=== PATIENT | female | born 1965 | race Caucasian/White ===

== ENCOUNTER 2017-08-23 11:52 | Observation (INO) | payer BC ==
[2017-08-23] MEDS ORDERED: Aspirin 81 MG Tab.Chew PO ONE (12:03)
[2017-08-23] MEDS ORDERED: Sodium Chloride 0.9% 2.5 ML Syringe FLUSH PRN (12:03)
[2017-08-23] MEDS ORDERED: Sodium Chloride 0.9% 10 ML Syringe FLUSH PRN (12:03)
--- NOTE | 2017-08-23 12:06 | EDM.PDOC ---
ED HPI GENERAL MEDICAL PROBLEM - General Chief Complaint: Chest Pain Stated Complaint: CHEST PAIN Time Seen by Provider: 08/23/17 11:58 - History of Present Illness INITIAL COMMENTS - FREE TEXT/NARRATIVE: HISTORY AND PHYSICAL: History of present illness: Patient 52-year-old female presents concern of left-sided chest pain started this a.m. vaguely described without associated palpitations or diaphoresis patient equivocates regarding shortness of breath she denies prior history of VA or CVA she does have history of hypertension. Review of systems: As per history of present illness and below otherwise all systems reviewed and negative. Past medical history: As per history of present illness and as reviewed below otherwise noncontributory. Surgical history: As per history of present illness and as reviewed below otherwise noncontributory. Social history: No reported history of drug or alcohol abuse. Family history: As per history of present illness and as reviewed below otherwise noncontributory. Physical exam: HEENT: Atraumatic, normocephalic, pupils reactive, negative for conjunctival pallor or scleral icterus, mucous membranes moist, throat clear, neck supple, nontender, trachea midline. Lungs: Clear to auscultation, breath sounds equal bilaterally, chest nontender. Heart: S1S2, regular, negative for clicks, rubs, or JVD. Abdomen: Soft, nondistended, nontender. Negative for masses or hepatosplenomegaly. Negative for costovertebral tenderness. Pelvis: Stable nontender. Genitourinary: Deferred. Rectal: Deferred. Extremities: Atraumatic, negative for cords or calf pain. Neurovascular unremarkable. Neuro: Awake, alert, oriented. Cranial nerves II through XII unremarkable. Cerebellum unremarkable. Motor and sensory unremarkable throughout. Exam nonfocal. Diagnostics: CBC CMP PT/INR troponin chest x-ray EKG Therapeutics: IV O2 monitor aspirin 324 mg Impression: #1 chest pain # 2 history of hypertension Definitive disposition and diagnosis as appropriate pending reevaluation and review of above. - Related Data Allergies Allergy/AdvReac Type Severity Reaction Status Date / Time No Known Allergies Allergy Verified 08/23/17 12:08 Home Meds: Home Meds Hydrochlorothiazide [Microzide] 25 mg PO DAILY 12/14/13 [History] Losartan [Cozaar] 100 tab PO DAILY 12/18/13 [History] Pravastatin [Pravachol] 80 mg PO DAILY 12/18/13 [History] Omeprazole [priLOSEC OTC] 20 mg PO DAILY 05/30/14 [History] Carvedilol 25 mg PO BID 06/01/14 [History] traZODone HCl [Trazodone HCl] 50 mg PO 08/23/17 [History] Past Medical History Other Musculoskeletal History: Patient reports that collar bone and knees and bottom of feet hurt more often recently. Social & Family History - Tobacco Use Smoking Status *Q: Unknown Ever Smoked Second Hand Smoke Exposure: Yes - Alcohol Use Days Per Week of Alcohol Use: 8 Number of Drinks Per Day: 5 Total Drinks Per Week: 40 - Recreational Drug Use Recreational Drug Use: No Drug Use in Last 12 Months: No ED ROS GENERAL - Review of Systems Review Of Systems: ROS reveals no pertinent complaints other than HPI. ED EXAM, GENERAL - Physical Exam Exam: See Below (dictation) Course - Vital Signs Last Recorded V/S: Last Vital Signs Temp 36.6 C 08/23/17 12:04 Pulse 74 08/23/17 12:04 Resp 18 08/23/17 12:04 BP 161/90 H 08/23/17 12:04 Pulse Ox 98 08/23/17 12:04 - Orders/Labs/Meds Orders: Active Orders 24 hr Category Date Time Status Cardiac Monitoring [RC] . DIRECTED Care 08/23/17 12:02 Active EKG Documentation Completion [RC] STAT Care 08/23/17 12:02 Active Oxygen Therapy, ED [RC] ASDIRECTED Care 08/23/17 12:02 Active Pulse Oximetry [RC] ASDIRECTED Care 08/23/17 12:02 Active Chest 1V Frontal [CR] Stat Exams 08/23/17 12:03 Taken Sodium Chloride 0.9% [Normal Saline] 1,000 ml Med 08/23/17 12:15 Active IV STAT Sodium Chloride 0.9% [Saline Flush] Med 08/23/17 12:03 Active 10 ml FLUSH ASDIRECTED PRN Sodium Chloride 0.9% [Saline Flush] Med 08/23/17 12:03 Active 2.5 ml FLUSH ASDIRECTED PRN Saline Lock Insert [OM.PC] Stat Oth 08/23/17 12:02 Ordered Medication Orders Sodium Chloride (Normal Saline) 1,000 mls @ 125 mls/hr IV STAT TAI Last Admin: 08/23/17 12:40 Dose: 125 mls/hr Sodium Chloride (Saline Flush) 10 ml FLUSH ASDIRECTED PRN PRN Reason: Keep Vein Open Sodium Chloride (Saline Flush) 2.5 ml FLUSH ASDIRECTED PRN PRN Reason: Keep Vein Open Labs: Laboratory Tests 08/23/17 08/23/17 08/23/17 Range/Units 12:29 12:29 12:29 WBC 4.60 (4.0-11.0) K/uL RBC 4.21 L (4.30-5.90) M/uL Hgb 13.1 (12.0-16.0) g/dL Hct 37.8 (36.0-46.0) % MCV 89.8 (80.0-98.0) fL MCH 31.1 (27.0-32.0) pg MCHC 34.7 (31.0-37.0) g/dL RDW Std Deviation 40.1 (28.0-62.0) fl RDW Coeff of [place] 12 (11.0-15.0) % Plt Count 273 (150-400) K/uL MPV 9.20 (7.40-12.00) fL Neut % (Auto) 48.0 (48.0-80.0) % Lymph % (Auto) 38.5 (16.0-40.0) % [place] % (Auto) 8.3 (0.0-15.0) % Eos % (Auto) 4.8 (0.0-7.0) % Baso % (Auto) 0.4 (0.0-1.5) % Neut # (Auto) 2.2 (1.4-5.7) K/uL Lymph # (Auto) 1.8 (0.6-2.4) K/uL [place] # (Auto) 0.4 (0.0-0.8) K/uL Eos # (Auto) 0.2 (0.0-0.7) K/uL Baso # (Auto) 0.0 (0.0-0.1) K/uL Nucleated RBC % 0.0 /100WBC Nucleated RBCs # 0 K/uL INR 0.97 Sodium 140 (136-146) mmol/L Potassium 4.5 (3.5-5.1) mmol/L Chloride 105 (98-110) mmol/L Carbon Dioxide 24 (21-31) mmol/L BUN 15 (6.0-23.0) mg/dL Creatinine 0.8 (0.6-1.5) mg/dL Est Cr Clr Drug Dosing 62.07 mL/min Estimated GFR (MDRD) > 60.0 ml/min Glucose 102 (60-110) mg/dL Calcium 9.6 (8.8-10.8) mg/dL Total Bilirubin 0.5 (0.1-1.5) mg/dL AST 22 (5-40) IU/L ALT 22 (8-54) IU/L Alkaline Phosphatase 66 (40-150) Troponin I < 0.10 (0.0-0.29) NG/ML Total Protein 7.7 (6.0-8.0) g/dL Albumin 4.7 (3.5-5.0) g/dL Globulin 3.0 (2.0-3.5) g/dL Albumin/Globulin Ratio 1.6 (1.3-2.8) Urine Color Urine Appearance Urine pH (5.0-8.0) Ur Specific [place] (1.001-1.035) Urine Protein (NEGATIVE) mg/dL Urine Glucose (UA) (NEGATIVE) mg/dL Urine Ketones (NEGATIVE) mg/dL Urine Occult Blood (NEGATIVE) Urine Nitrite (NEGATIVE) Urine Bilirubin (NEGATIVE) Urine Urobilinogen (<2.0) EU/dL Ur Leukocyte Esterase (NEGATIVE) Urine RBC (0-2/HPF) Urine WBC (0-5/HPF) Ur Epithelial Cells (NONE-FEW) Urine Bacteria (NEGATIVE) Urine Opiates Screen (NEGATIVE) Ur Oxycodone Screen (NEGATIVE) Urine Methadone Screen (NEGATIVE) Ur Barbiturates Screen (NEGATIVE) Ur Phencyclidine Scrn (NEGATIVE) Ur Amphetamine Screen (NEGATIVE) U Methamphetamines Scrn (NEGATIVE) U Benzodiazepines Scrn (NEGATIVE) U Cocaine Metab Screen (NEGATIVE) U Marijuana (THC) Screen (NEGATIVE) 08/23/17 08/23/17 Range/Units 12:34 12:34 WBC (4.0-11.0) K/uL RBC (4.30-5.90) M/uL Hgb (12.0-16.0) g/dL Hct (36.0-46.0) % MCV (80.0-98.0) fL MCH (27.0-32.0) pg MCHC (31.0-37.0) g/dL RDW Std Deviation (28.0-62.0) fl RDW Coeff of [place] (11.0-15.0) % Plt Count (150-400) K/uL MPV (7.40-12.00) fL Neut % (Auto) (48.0-80.0) % Lymph % (Auto) (16.0-40.0) % [place] % (Auto) (0.0-15.0) % Eos % (Auto) (0.0-7.0) % Baso % (Auto) (0.0-1.5) % Neut # (Auto) (1.4-5.7) K/uL Lymph # (Auto) (0.6-2.4) K/uL [place] # (Auto) (0.0-0.8) K/uL Eos # (Auto) (0.0-0.7) K/uL Baso # (Auto) (0.0-0.1) K/uL Nucleated RBC % /100WBC Nucleated RBCs # K/uL INR Sodium (136-146) mmol/L Potassium (3.5-5.1) mmol/L Chloride (98-110) mmol/L Carbon Dioxide (21-31) mmol/L BUN (6.0-23.0) mg/dL Creatinine (0.6-1.5) mg/dL Est Cr Clr Drug Dosing mL/min Estimated GFR (MDRD) ml/min Glucose (60-110) mg/dL Calcium (8.8-10.8) mg/dL Total Bilirubin (0.1-1.5) mg/dL AST (5-40) IU/L ALT (8-54) IU/L Alkaline Phosphatase (40-150) Troponin I (0.0-0.29) NG/ML Total Protein (6.0-8.0) g/dL Albumin (3.5-5.0) g/dL Globulin (2.0-3.5) g/dL Albumin/Globulin Ratio (1.3-2.8) Urine Color YELLOW Urine Appearance CLEAR Urine pH 5.5 (5.0-8.0) Ur Specific [place] 1.020 (1.001-1.035) Urine Protein NEGATIVE (NEGATIVE) mg/dL Urine Glucose (UA) NEGATIVE (NEGATIVE) mg/dL Urine Ketones NEGATIVE (NEGATIVE) mg/dL Urine Occult Blood NEGATIVE (NEGATIVE) Urine Nitrite NEGATIVE (NEGATIVE) Urine Bilirubin NEGATIVE (NEGATIVE) Urine Urobilinogen 0.2 (<2.0) EU/dL Ur Leukocyte Esterase NEGATIVE (NEGATIVE) Urine RBC 0-1 (0-2/HPF) Urine WBC 0-1 (0-5/HPF) Ur Epithelial Cells RARE (NONE-FEW) Urine Bacteria RARE (NEGATIVE) Urine Opiates Screen NEGATIVE (NEGATIVE) Ur Oxycodone Screen NEGATIVE (NEGATIVE) Urine Methadone Screen NEGATIVE (NEGATIVE) Ur Barbiturates Screen NEGATIVE (NEGATIVE) Ur Phencyclidine Scrn NEGATIVE (NEGATIVE) Ur Amphetamine Screen NEGATIVE (NEGATIVE) U Methamphetamines Scrn NEGATIVE (NEGATIVE) U Benzodiazepines Scrn NEGATIVE (NEGATIVE) U Cocaine Metab Screen NEGATIVE (NEGATIVE) U Marijuana (THC) Screen NEGATIVE (NEGATIVE) Meds: Medications Generic Name Dose Route Start Last Admin Trade Name Freq PRN Reason Stop Dose Admin Sodium Chloride 1,000 mls @ 125 mls/hr 08/23/17 12:15 08/23/17 12:40 Normal Saline IV 125 mls/hr STAT TAI Administration Sodium Chloride 10 ml 08/23/17 12:03 Saline Flush FLUSH ASDIRECTED PRN Keep Vein Open Sodium Chloride 2.5 ml 08/23/17 12:03 Saline Flush FLUSH ASDIRECTED PRN Keep Vein Open Discontinued Medications Generic Name Dose Route Start Last Admin Trade Name Freq PRN Reason Stop Dose Admin Aspirin 324 mg 08/23/17 12:03 08/23/17 12:40 Aspirin PO 08/23/17 12:04 324 mg ONETIME ONE Administration Departure - Departure Time of Disposition: 13:34 Disposition: Refer to Observation Clinical Impression: Chest pain - Discharge Information Forms: ED Department Discharge - My Orders Last 24 Hours: My Active Orders 08/23/17 12:02 Cardiac Monitoring [RC] . DIRECTED EKG Documentation Completion [RC] STAT Oxygen Therapy, ED [RC] ASDIRECTED Pulse Oximetry [RC] ASDIRECTED Saline Lock Insert [OM.PC] Stat 08/23/17 12:03 Chest 1V Frontal [CR] Stat Sodium Chloride 0.9% [Saline Flush] 10 ml FLUSH ASDIRECTED PRN Sodium Chloride 0.9% [Saline Flush] 2.5 ml FLUSH ASDIRECTED PRN 08/23/17 12:15 Sodium Chloride 0.9% [Normal Saline] 1,000 ml IV STAT - Assessment/Plan Last 24 Hours: My Active Orders 08/23/17 12:02 Cardiac Monitoring [RC] . DIRECTED EKG Documentation Completion [RC] STAT Oxygen Therapy, ED [RC] ASDIRECTED Pulse Oximetry [RC] ASDIRECTED Saline Lock Insert [OM.PC] Stat 08/23/17 12:03 Chest 1V Frontal [CR] Stat Sodium Chloride 0.9% [Saline Flush] 10 ml FLUSH ASDIRECTED PRN Sodium Chloride 0.9% [Saline Flush] 2.5 ml FLUSH ASDIRECTED PRN 08/23/17 12:15 Sodium Chloride 0.9% [Normal Saline] 1,000 ml IV STAT
[2017-08-23] MEDS ORDERED: Sodium Chloride 0.9% 1,000 ML IV SCH (12:15)
[2017-08-23 12:57] LABS: CHLORIDE,CL 105 mmol/L (98-110); SODIUM,NA 140 mmol/L (136-146)
--- NOTE | 2017-08-23 15:02 | PCM.HP ---
H&P History of Present Illness - General Date of Service: 08/23/17 Admit Problem/Dx: Admission Diagnosis/Problem Admission Diagnosis/Problem Chest pain - History of Present Illness Initial Comments - Free Text/Narative: 52-year-old female presenting to emergency department with chief complaint of left sided chest pain starting at 08 30 this a.m. with past medical history of hypertension. Patient states that she awoke this morning with left-sided chest pain that radiated into her left arm but not jaw. She describes pain as "achy" and continuous but not sharp or heavy. She did have some associated shortness of breath and diaphoresis. Patient continues to have pain and states that there is nothing that makes it better or worse. She does have a history of hypertension and GERD. She takes prilosec for her gerd and reports that his pain is much different. States that she does have a family history on her mother's side of SD and stroke. She denies any associated nausea or vomiting with the chest pain. She also denies any leg pain or swelling. States that she recently drove back from [place] 3 days ago. Denies history of any DVT or coagulopathies. She has never smoked and drinks alcohol socially but not every day. Emergency department CBC, CMP, UA, urine tox were all unremarkable. Chest x-ray revealed no acute cardiopulmonary process but extensive thoracolumbar fixation and fusion. Initial troponin was negative at 12:30. Amylase and lipase were within normal limits. D-dimer was negative. She was mildly hypertensive with a blood pressure 161/90. ECG said no acute signs of ischemia. Patient is admitted for chest pain/ACS rule out. Chest Pain Score (Numeric/FACES): 8 - Related Data Allergies/Adverse Reactions: Allergies Allergy/AdvReac Type Severity Reaction Status Date / Time No Known Allergies Allergy Verified 08/23/17 12:08 Home Medications: Home Meds Hydrochlorothiazide [Microzide] 25 mg PO DAILY 12/14/13 [History] Losartan [Cozaar] 100 tab PO DAILY 12/18/13 [History] Pravastatin [Pravachol] 80 mg PO DAILY 12/18/13 [History] Omeprazole [priLOSEC OTC] 20 mg PO DAILY 05/30/14 [History] Carvedilol 25 mg PO BID 06/01/14 [History] traZODone HCl [Trazodone HCl] 50 mg PO 08/23/17 [History] Past Medical History Cardiovascular History: Reports: High Cholesterol, Hypertension Gastrointestinal History: Reports: GERD [employer] History: Reports: Other Musculoskeletal History: Patient reports that collar bone and knees and bottom of feet hurt more often recently. - Past Surgical History HEENT Surgical History: Reports: Tonsillectomy Social & Family History - Family History Family Medical History: Noncontributory - Tobacco Use Smoking Status *Q: Never Smoker Second Hand Smoke Exposure: Yes - Caffeine Use Caffeine Use: Reports: Coffee, Soda - Alcohol Use Days Per Week of Alcohol Use: 3 Number of Drinks Per Day: 6 Total Drinks Per Week: 18 Date of Last Drink: 08/22/17 - Recreational Drug Use Recreational Drug Use: No Drug Use in Last 12 Months: No H&P Review of Systems - Review of Systems: Review Of Systems: See Below General: Denies: Fever, Chills, Malaise, Weakness, Fatigue HEENT: Denies: Headaches, Sore Throat Pulmonary: Reports: Shortness of Breath. Denies: Cough, Sputum Cardiovascular: Reports: Chest Pain. Denies: Palpitations, Lightheadedness, Syncope Gastrointestinal: Denies: Abdominal Pain, Black Stool, Bloody Stool, Diarrhea, Nausea, Vomiting Genitourinary: Denies: Dysuria, Hematuria Musculoskeletal: Denies: Neck Pain, Leg Pain Skin: Denies: Cyanosis Psychiatric: Denies: Confusion Neurological: Denies: Confusion, Dizziness, Headache Hematologic/Lymphatic: Denies: Anemia Exam - Exam Exam: See Below - Vital Signs Vital Signs: Last Vital Signs Temp 97.8 F 08/23/17 12:04 Pulse 74 08/23/17 12:04 Resp 18 08/23/17 12:04 BP 161/90 H 08/23/17 12:04 Pulse Ox 98 08/23/17 12:04 Weight: 68.175 kg - Exam Quality Assessment: DVT Prophylaxis General: Alert, Oriented, Cooperative HEENT: Conjunctiva Clear, EACs Clear, EOMI, Hearing Intact, Mucosa Moist & [place] , Nares Patent, Normal Nasal Septum, Posterior Pharynx Clear, PERRLA Neck: Supple, Trachea Midline, 2 Lungs: Clear to Auscultation, Normal Respiratory Effort Cardiovascular: Regular Rate, Regular Rhythm, Normal S1, Normal S2 GI/Abdominal Exam: Normal Bowel Sounds, Soft, Non-Tender, No Organomegaly, No Distention (Female) Exam: Deferred Rectal (Female) Exam: Deferred Back Exam: Normal Inspection Extremities: Normal Inspection, Non-Tender, No Pedal Edema, Normal Capillary Refill Peripheral Pulses: 2+: Radial (L), Radial (R), Posterior Tibial (L), Posterior Tibial (R), Dorsalis Pedis (L), Dorsalis Pedis (R) Skin: Warm, Dry, Intact Neurological: Cranial Nerves Intact Neuro Extensive - Mental Status: Alert, Oriented x3, Normal Mood/Affect, Normal Cognition Neuro Extensive - Motor, Sensory, Reflexes: CN II-XII Intact Psychiatric: Alert, Normal Affect, Normal Mood - Patient Data Result Diagrams: 08/23/17 12:29 08/23/17 12:29 *Q Meaningful Use (ADM) - VTE *Q VTE Criteria *Q: - Stroke *Q Stroke Criteria *Q: - AMI *Q AMI Criteria *Q: - Problem List (1) Hypertension SNOMED Code(s): 95326763 ICD Code: I10 - ESSENTIAL (PRIMARY) HYPERTENSION Status: Acute Current Visit: Yes Qualifiers: Hypertension type: unspecified Qualified Code(s): I10 - Essential (primary ) hypertension (2) Chest pain SNOMED Code(s): 40057414 ICD Code: R07.9 - CHEST PAIN, UNSPECIFIED Status: Acute Current Visit: Yes Qualifiers: Chest pain type: other chest pain Qualified Code(s): R07.89 - Other chest pain; R07.8 - Other chest pain Problem List Initiated/Reviewed/Updated: Yes Orders Last 24hrs: Active Orders 24 hr Category Date Time Status AMYLASE [CHEM] Routine Lab 08/23/17 15:02 Ordered LIPASE [CHEM] Routine Lab 08/23/17 15:02 Ordered Medication Orders Sodium Chloride (Normal Saline) 1,000 mls @ 125 mls/hr IV STAT TAI Last Admin: 08/23/17 12:40 Dose: 125 mls/hr Sodium Chloride (Saline Flush) 10 ml FLUSH ASDIRECTED PRN PRN Reason: Keep Vein Open Sodium Chloride (Saline Flush) 2.5 ml FLUSH ASDIRECTED PRN PRN Reason: Keep Vein Open Assessment/Plan Comment:: 52-year-old female admitted 08/23/17 for chest pain with past medical history of hypertension. Chest pain: Patient was diaphoretic with left-sided chest pain radiating into her left arm. It is not reproducible on exam. She did have recent travel but d- dimer was negative and reports no leg pain. Initial troponin was negative. ECG shows no signs of acute ischemia. Will trend troponins every [address] on telemetry. Fasting lipid panel in a.m. She does have a history of pancreatitis but amylase and lipase were within normal limits. Acetaminophen and morphine for pain. Hypertension: Hypertensive at 161/90 in the emergency department. This is improved with pain medication. Will restart home medications and monitor. As above we will get a lipid panel to assess her overall cardiac risk. VTE proph: SCD, Lovenox Dispo: 1-2 days pending.
[2017-08-23] MEDS ORDERED: Acetaminophen 325 MG Tab PO PRN (15:21)
[2017-08-23] MEDS ORDERED: Ondansetron 4 MG Tab.DIS PO PRN (15:21)
[2017-08-23] MEDS: Enoxaparin 40 MG/0.4 ML Syringe SUBCUT SCH (15:50)
[2017-08-23] MEDS: Morphine 2 MG/ML Syringe IVPUSH PRN ×2 (15:52→20:50)
[2017-08-23] MEDS: Ondansetron 4 MG/2 ML SDV IVPUSH PRN (18:13)
[2017-08-23] MEDS: Sodium Chloride 0.9% 1,000 ML IV SCH ×2 (18:16→20:51)
[2017-08-24] MEDS: Ondansetron 4 MG/2 ML SDV IVPUSH PRN (00:18)
[2017-08-24 06:38] LABS: CHLORIDE,CL 105 mmol/L (98-110); SODIUM,NA 139 mmol/L (136-146)
[2017-08-24 13:10] VITALS: BP 137/80
[2017-08-24] MEDS: Enoxaparin 40 MG/0.4 ML Syringe SUBCUT SCH (14:31)
--- NOTE | 2017-08-24 14:55 | PCM.DCSUM1 ---
Discharge Summary - Discharge Data Discharge Date: 08/24/17 Discharge Disposition: Home, Self-Care 01 Condition: Good - Patient Summary/Data Hospital Course: 52-year-old female presenting to emergency department with chief complaint of left sided chest pain starting at 08 30 this a.m. with past medical history of hypertension. She was admitted and ruled out overnight for acute coronary syndrome with serial negative cardiac enzymes. She had no more chest pain since admission. There were no signs of acute ischemia on EKG. Amylase and lipase were normal, CBC,CMP,UA CXR and urine tox were all unremarkable. Triglycerides were 602 so she was started on gemfibrozil. She was referred to outpatient stress testing and discharged home to have follow up at [facility]. - Discharge Plan Prescriptions/Med Rec: Gemfibrozil [Lopid] 600 mg PO BIDAC #30 tab Home Medications: Home Meds Hydrochlorothiazide [Microzide] 25 mg PO DAILY 12/14/13 [History] Losartan [Cozaar] 100 tab PO DAILY 12/18/13 [History] Pravastatin [Pravachol] 80 mg PO DAILY 12/18/13 [History] Omeprazole [priLOSEC OTC] 20 mg PO DAILY 05/30/14 [History] Carvedilol 25 mg PO BID 06/01/14 [History] traZODone HCl [Trazodone HCl] 50 mg PO 08/23/17 [History] Gemfibrozil [Lopid] 600 mg PO BIDAC #30 tab 08/24/17 [Rx] Patient Handouts: Nonspecific Chest Pain, [id number] Referrals: PCP,None [Primary Care Provider] - - Patient Data Vitals - Most Recent: Last Vital Signs Temp 36.3 C 08/24/17 13:14 Pulse 62 08/24/17 13:14 Resp 18 08/24/17 13:14 BP 137/80 08/24/17 13:14 Pulse Ox 97 08/24/17 13:14 Weight - Most Recent: 68.175 kg I&O - Last 24 hours: Intake & Output 08/23/17 08/24/17 08/24/17 22:59 06:59 14:59 Intake Total 1196 200 Output Total 0 1000 Balance 1196 -800 Lab Results - Last 24 hrs: Laboratory Results - last 24 hr 08/23/17 08/24/17 08/24/17 Range/Units 18:30 00:27 05:45 WBC 4.83 (4.0-11.0) K/uL RBC 3.71 L (4.30-5.90) M/uL Hgb 11.5 L (12.0-16.0) g/dL Hct 34.5 L (36.0-46.0) % MCV 93.0 (80.0-98.0) fL MCH 31.0 (27.0-32.0) pg MCHC 33.3 (31.0-37.0) g/dL RDW Std Deviation 43.2 (28.0-62.0) fl RDW Coeff of [place] 13 (11.0-15.0) % Plt Count 241 (150-400) K/uL MPV 9.10 (7.40-12.00) fL Neut % (Auto) 48.9 (48.0-80.0) % Lymph % (Auto) 38.5 (16.0-40.0) % [place] % (Auto) 8.9 (0.0-15.0) % Eos % (Auto) 3.3 (0.0-7.0) % Baso % (Auto) 0.4 (0.0-1.5) % Neut # (Auto) 2.4 (1.4-5.7) K/uL Lymph # (Auto) 1.9 (0.6-2.4) K/uL [place] # (Auto) 0.4 (0.0-0.8) K/uL Eos # (Auto) 0.2 (0.0-0.7) K/uL Baso # (Auto) 0.0 (0.0-0.1) K/uL Nucleated RBC % 0.0 /100WBC Nucleated RBCs # 0 K/uL Sodium (136-146) mmol/L Potassium (3.5-5.1) mmol/L Chloride (98-110) mmol/L Carbon Dioxide (21-31) mmol/L BUN (6.0-23.0) mg/dL Creatinine (0.6-1.5) mg/dL Est Cr Clr Drug Dosing mL/min Estimated GFR (MDRD) ml/min Glucose (60-110) mg/dL Calcium (8.8-10.8) mg/dL Magnesium (1.5-2.3) mEq/L Troponin I < 0.10 < 0.10 (0.0-0.29) NG/ML Triglycerides (10-190) mg/dL Cholesterol (131-240) mg/dL HDL Cholesterol (40-80) mg/dL Cholesterol/HDL Ratio (3.3-6.0) 08/24/17 Range/Units 05:45 WBC (4.0-11.0) K/uL RBC (4.30-5.90) M/uL Hgb (12.0-16.0) g/dL Hct (36.0-46.0) % MCV (80.0-98.0) fL MCH (27.0-32.0) pg MCHC (31.0-37.0) g/dL RDW Std Deviation (28.0-62.0) fl RDW Coeff of [place] (11.0-15.0) % Plt Count (150-400) K/uL MPV (7.40-12.00) fL Neut % (Auto) (48.0-80.0) % Lymph % (Auto) (16.0-40.0) % [place] % (Auto) (0.0-15.0) % Eos % (Auto) (0.0-7.0) % Baso % (Auto) (0.0-1.5) % Neut # (Auto) (1.4-5.7) K/uL Lymph # (Auto) (0.6-2.4) K/uL [place] # (Auto) (0.0-0.8) K/uL Eos # (Auto) (0.0-0.7) K/uL Baso # (Auto) (0.0-0.1) K/uL Nucleated RBC % /100WBC Nucleated RBCs # K/uL Sodium 139 (136-146) mmol/L Potassium 4.2 (3.5-5.1) mmol/L Chloride 105 (98-110) mmol/L Carbon Dioxide 26 (21-31) mmol/L BUN 12 (6.0-23.0) mg/dL Creatinine 0.8 (0.6-1.5) mg/dL Est Cr Clr Drug Dosing 62.07 mL/min Estimated GFR (MDRD) > 60.0 ml/min Glucose 104 (60-110) mg/dL Calcium 8.8 (8.8-10.8) mg/dL Magnesium 1.6 (1.5-2.3) mEq/L Troponin I (0.0-0.29) NG/ML Triglycerides 602 H (10-190) mg/dL Cholesterol 241 H (131-240) mg/dL HDL Cholesterol 42 (40-80) mg/dL Cholesterol/HDL Ratio 5.7 (3.3-6.0) Med Orders - Current: Current Medications Acetaminophen (Tylenol) 650 mg PO Q4H PRN PRN Reason: Pain (Mild 1-3)/fever Enoxaparin Sodium (Lovenox) 40 mg SUBCUT Q24H TAI Last Admin: 08/24/17 14:31 Dose: 40 mg Sodium Chloride (Normal Saline) 1,000 mls @ 100 mls/hr IV ASDIRECTED TAI Last Admin: 08/23/17 20:51 Dose: 100 mls/hr Morphine Sulfate (Morphine) 2 mg IVPUSH Q2H PRN PRN Reason: Pain (severe 7-10) Stop: 08/24/17 15:23 Last Admin: 08/23/17 20:50 Dose: 2 mg Ondansetron HCl (Zofran Odt) 4 mg PO Q4H PRN PRN Reason: nausea, able to take PO Ondansetron HCl (Zofran) 4 mg IVPUSH Q4H PRN PRN Reason: Nausea Last Admin: 08/24/17 00:18 Dose: 4 mg Sodium Chloride (Saline Flush) 10 ml FLUSH ASDIRECTED PRN PRN Reason: Keep Vein Open Sodium Chloride (Saline Flush) 2.5 ml FLUSH ASDIRECTED PRN PRN Reason: Keep Vein Open Discontinued Medications Aspirin (Aspirin) 324 mg PO ONETIME ONE Stop: 08/23/17 12:04 Last Admin: 08/23/17 12:40 Dose: 324 mg Sodium Chloride (Normal Saline) 1,000 mls @ 125 mls/hr IV STAT [facility] Last Admin: 08/23/17 12:40 Dose: 125 mls/hr *Q Meaningful Use (DIS) - VTE *Q VTE Criteria *Q: - Stroke *Q Stroke Criteria *Q: - AMI *Q AMI Criteria *Q:
--- NOTE | 2017-08-25 14:16 | CR ---
EXAM DATE: 08/23/17 PATIENT'S AGE: 52 Patient: ANDRES ROSSI Facility: [place] [place] Site . Site : [id number] Study: XRay Chest [id number]/27/[id number] 12:39:18 PM Ordering Physician: Joyce Raphael Final Report: INDICATION: Pain. Shortness of breath. TECHNIQUE: AP upright portable chest. COMPARISON: None. FINDINGS: Shallow inspiration. Extensive thoracolumbar yessy fixation/fusion posteriorly. Shallow inspiration. Clear lungs. Overall heart size is normal accounting for technique. Slight degenerative change of the left AC joint. Impression : 1. Extensive thoracolumbar yessy fixation/fusion. 2. No acute cardiopulmonary process identified. Dictated by Ananth Sams MD @ 08/23/2017 1:18:54 PM Dictated by: Ananth Sams MD @ 08/23/2017 13:19:00 (Electronic Signature) Report Signed by Proxy. [email or web address]
== END 2017-08-24 15:20 | disposition home or self-care (01) ==
LOC: MW.ED 11:52 → MW.MS 13:36
PROVIDERS: ADMIT Family Medicine; ATTEND Family Medicine
DX: R07.89 Other chest pain (principal); I10 Essential (primary) hypertension; K21.9 Gastro-esophageal reflux disease without esophagitis; E78.00 Pure hypercholesterolemia, unspecified; Z79.899 Other long term (current) drug therapy; Z82.49 Family history of ischemic heart disease and other diseases of the circulatory system; Z90.89 Acquired absence of other organs
CPT/HCPCS: 36415; 71045; 80048; 80053; 80061; 80305; 81001; 82150; 83690; 83735; 84484; 85025; 85379; 85610; 93005; 96360; 96361; 99285; A9270; J1650; J2270; J2405; J7040; 96372; 96374; 96375; 96376; 99283; G0378

== ENCOUNTER 2017-09-24 09:10 | Day surgery (SDC) | payer BC ==
[~2017-09-24 09:10] MED LIST: Lactated Ringers 1,000 ML IV SCH; Lidocaine 2% 5 ML SDV ONE; Propofol 200 MG/20 ML SDV ONE; Sodium Chloride 0.9% 10 ML Syringe FLUSH PRN; Sodium Chloride 0.9% 2.5 ML Syringe FLUSH PRN; fentaNYL 100 MCG/2 ML SDV ONE
--- NOTE | 2017-09-24 09:51 | PCM.PREANE ---
Preanesthetic Assessment - Anesthesia/Transfusion/Family Hx Anesthesia History: Prior Anesthesia Without Reaction Other Type of Anesthesia Reaction Comment: DENIES ANY PROBLEMS WITH ANESTHESIA Family History of Anesthesia Reaction: No Transfusion History: No Prior Transfusion(s) Intubation History: Unknown - Review of Systems General: No Symptoms Pulmonary: No Symptoms Cardiovascular: No Symptoms Gastrointestinal: Other (changes in bowel habits) Neurological: No Symptoms Other: Reports: None - Physical Assessment O2 Sat by Pulse Oximetry: 96 Respiratory Rate: 16 Vital Signs: Last Vital Signs Temp 36.9 C 09/24/17 09:29 Pulse 64 09/24/17 09:29 Resp 16 09/24/17 09:29 BP 127/89 09/24/17 09:29 Pulse Ox 96 09/24/17 09:29 Height: 1.55 m Weight: 68.492 kg ASA Class: 2 Mental Status: Alert & Oriented x3 Airway Class: Mallampati = 2 Dentition: Reports: Normal Dentition Thyro-Mental Finger Breadths: 3 Mouth Opening Finger Breadths: 2 ROM/Head Extension: Full Lungs: Clear to Auscultation, Normal Respiratory Effort Cardiovascular: Regular Rate, Regular Rhythm - Allergies Allergies/Adverse Reactions: Allergies Allergy/AdvReac Type Severity Reaction Status Date / Time No Known Allergies Allergy Verified 09/22/17 10:20 - Blood Blood Available: No - Anesthesia Plan Pre-Op Medication Ordered: None - Acknowledgements Anesthesia Type Planned: MAC Pt an Appropriate Candidate for the Planned Anesthesia: Yes Alternatives and Risks of Anesthesia Discussed w Pt/Guardian: Yes Pt/Guardian Understands and Agrees with Anesthesia Plan: Yes PreAnesthesia Questionnaire HEENT History: Reports: None Cardiovascular History: Reports: High Cholesterol, Hypertension Respiratory History: Reports: None Gastrointestinal History: Reports: GERD, Pancreatitis, Other (See Below) (h/o elevated LFT's during pancreatitis) Genitourinary History: Reports: None 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: Musculoskeletal History: Reports: Back Pain, Chronic, Fracture, Other (See Below ) (arttalgia, myalgia) Other Musculoskeletal History: hx ashia ankle fx's Psychiatric History: Reports: Anxiety Endocrine/Metabolic History: Reports: None Hematologic History: Reports: None Immunologic History: Reports: None Oncologic (Cancer) History: Reports: None Dermatologic History: Reports: None - Past Surgical History Head Surgeries/Procedures: Reports: None HEENT Surgical History: Reports: Tonsillectomy GI Surgical History: Reports: Colonoscopy (x2), EGD Female Surgical History: Reports: Hysterectomy, Other (See Below) Other Female Surgeries/Procedures: ashia breast reduction Neurological Surgical History: Reports: C-Spine, Lumbar Spine (rods placement and removal for treatment of scoliosis), Scoliosis Other Neurological Surgeries/Procedures: hx neck and back surgery Musculoskeletal Surgical History: Reports: Carpal Tunnel - SUBSTANCE USE Smoking Status *Q: Never Smoker Tobacco Use Within Last Twelve Months: No Second Hand Smoke Exposure: Yes Days Per Week of Alcohol Use: 3 Number of Drinks Per Day: 6 Total Drinks Per Week: 18 Recreational Drug Use History: No - HOME MEDS Home Medications: Home Meds Omeprazole [priLOSEC OTC] 20 mg PO DAILY 05/30/14 [History] Carvedilol 25 mg PO BID 06/01/14 [History] traZODone HCl [Trazodone HCl] 100 mg PO BEDTIME 08/23/17 [History] Gemfibrozil [Lopid] 600 mg PO BIDAC #30 tab 08/24/17 [Rx] Aspirin [[place] Aspirin] 81 mg PO BEDTIME 09/22/17 [History] Triamterene/Hydrochlorothiazid [Triamterene-HCTZ 37.5-25 MG] 1 tab PO DAILY [History] - CURRENT (IN HOUSE) MEDS Current Meds: Current Medications Lactated Ringer's (Ringers, Lactated) 1,000 mls @ 125 mls/hr IV ASDIRECTED TAI Last Admin: 09/24/17 09:30 Dose: 125 mls/hr Sodium Chloride (Saline Flush) 10 ml FLUSH ASDIRECTED PRN PRN Reason: Keep Vein Open Sodium Chloride (Saline Flush) 2.5 ml FLUSH ASDIRECTED PRN PRN Reason: Keep Vein Open Sodium Chloride (Saline Flush) 10 ml FLUSH ASDIRECTED PRN PRN Reason: Keep Vein Open Sodium Chloride (Saline Flush) 2.5 ml FLUSH ASDIRECTED PRN PRN Reason: Keep Vein Open Discontinued Medications Fentanyl (Sublimaze) Confirm Administered Dose 100 mcg .ROUTE .STK-MED ONE Stop: 09/24/17 08:18 Lidocaine (Xylocaine-Mpf 2%) Confirm Administered Dose 5 ml .ROUTE .STK-MED ONE Stop: 09/24/17 08:17 Propofol (Diprivan 20 Ml) Confirm Administered Dose 400 mg .ROUTE .STK-MED ONE Stop: 09/24/17 08:17
--- NOTE | 2017-09-24 10:33 | PCM.OPNOTE ---
- General Post-Op/Procedure Note Date of Surgery/Procedure: 09/24/17 Operative Procedure(s): EGD with antral biopsy. Colonoscopy Findings: Mild antral gastritis and duodenitis; otherwise normal EGD. Colonoscopy normal. Pre Op Diagnosis: GERD. Alternating diarrhea and constipation/change in bowel habits Post-Op Diagnosis: Mild antral gastritis and duodenitis. Normal colonoscopy Anesthesia Technique: [facility] [place] Primary Surgeon: Hina Sim Secondary Surgeon: Torres Mac Pathology: Antral biopsy Complications: none
[2017-09-24 10:55] VITALS: BP 93/62
--- NOTE | 2017-09-24 10:56 | PCM48HPAN ---
Post Anesthesia Note - EVALUATION WITHIN 48HRS OF ANESTHETIC Vital Signs in Normal Range: Yes Patient Participated in Evaluation: Yes Respiratory Function Stable: Yes Airway Patent: Yes Cardiovascular Function Stable: Yes Hydration Status Stable: Yes Pain Control Satisfactory: Yes Nausea and Vomiting Control Satisfactory: Yes Mental Status Recovered: Yes Resp Rate: 15 - COMMENTS/OBSERVATIONS Free Text/Narrative:: no anesthesia problems
--- NOTE | 2017-09-24 11:30 | OR ---
SURGEON: CAROLE BEDOYA MD DATE OF PROCEDURE: 09/24/2017 PREOPERATIVE DIAGNOSIS: Gastroesophageal reflux disease, chronic diarrhea. POSTOPERATIVE DIAGNOSES: Gastroesophageal reflux disease, gastritis, duodenitis. PROCEDURE PERFORMED: Diagnostic esophagogastroduodenoscopy and colonoscopy. VISCOSE CELLAR WORKER: Dr. Fortunato Mac. ANESTHESIA: MAC. INSTRUMENT USED: Olympus endoscope, colonoscope EXTENT OF EXAM: To the second portion of the duodenum, to the cecum. PREPARATION: Good. LIMITATIONS: None. INDICATIONS FOR EXAMINATION: The patient is a 52-year-old female who presents with severe GERD. This is well controlled currently on PPIs, but she has never had an EGD. The patient is also complaining of 2 to 3 loose bowel movements a day as well as anal pruritus. She has not noticed any blood in her stool. We discussed the need for a diagnostic EGD and colonoscopy. The patient and I discussed the procedure, expected perioperative course, and risks including bleeding, infection, or damage to surrounding structures including perforation. The patient verbalized understanding and wishes to proceed. PROCEDURE IN DETAIL: The patient was brought into the endoscopy suite and placed in the left lateral decubitus position. A time-out was completed verifying the patient's name, age, date of , allergies, and procedure to be performed. Monitored anesthesia care was induced and a bite block was placed in the patient's mouth. Continuous oxygen was provided via nasal cannula throughout the procedure. After adequate sedation was achieved, a well lubricated endoscope was placed in the patient's mouth and advanced under direct visualization to the second portion of the duodenum. This appeared normal and a photograph was taken. The scope was then fully withdrawn while examining the color, texture, anatomy, and integrity of the upper GI tract. The patient had some mild duodenitis in the duodenal bulb. The scope was then brought into the stomach and a photograph was taken of the pylorus as well as the GE junction. There was some evidence of mild inflammation along the antrum up to the pylorus. Biopsy was taken of this as well as biopsies taken of the body and fundus and sent for H. pylori testing and histologic review. The scope was then brought into the distal esophagus. This appeared normal and a photograph was taken of the GE junction. The distal esophagus appeared normal with no evidence of any esophagitis or dysplastic changes. The remainder of the esophageal mucosa was free of pathology. The scope was removed and this portion of the procedure was terminated. A digital rectal exam was performed. This exam was within normal limits. A well lubricated colonoscope was inserted into the rectum and advanced under direct visualization to the level of cecum. The cecum was identified by both visual and anatomic landmarks. A photograph was taken of the cecal cap. Due to looping of the scope more proximally, I was unable to retroflex the scope within the cecum. The scope was then fully withdrawn while examining the color, texture, anatomy, and integrity of the mucosa from the cecum to the anal canal. The findings were consistent with normal colonic mucosa. The scope was then brought into the rectum and retroflexed to allow visualization of the anal canal opening. This appeared normal and a photograph was taken. The scope was then straightened out and removed from the patient. The cecum to anus time was 6 minutes. The patient tolerated the procedure well and was taken to PACU in stable condition. ENDOSCOPIC DIAGNOSES: 1. Gastroesophageal reflux disease. 2. Gastritis, duodenitis. RECOMMENDATIONS: We will start the patient on fiber therapy for her diarrhea. She should continue her PPI therapy as she feels this is helping. We will follow up on the biopsies in 2 weeks with the patient in clinic. ELIZABETH SWEENEY /[id number]
== END 2017-09-24 11:00 | disposition home or self-care (01) ==
LOC: MW.SDS 09:10
PROVIDERS: ATTEND Surgery
DX: K29.50 Unspecified chronic gastritis without bleeding (principal); K29.80 Duodenitis without bleeding; L57.0 Actinic keratosis; I10 Essential (primary) hypertension; R22.31 Localized swelling, mass and lump, right upper limb; E78.5 Hyperlipidemia, unspecified; G47.00 Insomnia, unspecified; L98.9 Disorder of the skin and subcutaneous tissue, unspecified; F41.9 Anxiety disorder, unspecified; Z90.89 Acquired absence of other organs; Z79.82 Long term (current) use of aspirin; Z79.899 Other long term (current) drug therapy; Z98.890 Other specified postprocedural states
CPT/HCPCS: 43239; 45378; 88305; 88312; J3010; J7120; J2704

== ENCOUNTER 2017-11-11 14:49 | Emergency (ER) | payer BC ==
[2017-11-11] MEDS ORDERED: Ketorolac 30 MG/ML SDV IM ONE (14:52)
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
--- NOTE | 2017-11-11 16:28 | CR ---
EXAMINATION: Thoracic spine HISTORY: Pain COMPARISON: 06/02/2017 TECHNIQUE: AP and lateral views FINDINGS: Extensive bilateral fusion of the thoracic spine again noted. Osseous structures appear int act and notably osteopenic. Stable S-shaped scoliosis. Visualized lungs are clear. IMPRESSION: 1. Stable hardware fusion of the thoracic spine without an acute findings.
--- NOTE | 2017-11-11 16:35 | CR ---
EXAMINATION: Left shoulder HISTORY: Pain COMPARISON: Thoracic spine from the same day TECHNIQUE: 3 views FINDINGS/IMPRESSION: There is no acute osseous abnormality, dislocation, or fracture. Bone mineraliza tion and joint spaces are preserved. Mild acromioclavicular osteoarthritic changes noted. Humeral hea d is mildly high riding which could suggest underlying rotator cuff arthropathy.
[2017-11-11 17:22] VITALS: BP 127/87
== END 2017-11-11 16:54 | disposition home or self-care (01) ==
LOC: MW.ED 14:49
DX: M62.830 Muscle spasm of back (principal); I10 Essential (primary) hypertension; Z79.899 Other long term (current) drug therapy; Z77.22 Contact with and (suspected) exposure to environmental tobacco smoke (acute) (chronic)
CPT/HCPCS: 72070; 73030; 96372; 99283; J1885

== ENCOUNTER 2018-11-28 09:34 | Emergency (ER) | payer BC ==
[2018-11-28] MEDS ORDERED: Morphine 2 MG/ML Syringe IVPUSH ONE (09:55)
[2018-11-28] MEDS ORDERED: Ketorolac 30 MG/ML SDV IVPUSH ONE (09:55)
[2018-11-28] MEDS ORDERED: Sodium Chloride 0.9% 10 ML Syringe FLUSH PRN (09:55)
[2018-11-28] MEDS ORDERED: Sodium Chloride 0.9% 1,000 ML IV ONE (09:55)
[2018-11-28] MEDS ORDERED: Ondansetron 4 MG/2 ML SDV IVPUSH ONE (09:55)
[2018-11-28] MEDS ORDERED: Sodium Chloride 0.9% 2.5 ML Syringe FLUSH PRN (09:55)
--- NOTE | 2018-11-28 09:57 | EDM.PDOC ---
ED HPI GENERAL MEDICAL PROBLEM - General Chief Complaint: Abdominal Pain Stated Complaint: PAIN ON RT SIDE TO BACK Time Seen by Provider: 11/28/18 09:40 - History of Present Illness INITIAL COMMENTS - FREE TEXT/NARRATIVE: HISTORY AND PHYSICAL: History of present illness: The patient is a 54-year-old female with a history of pancreatitis diverticulitis and gastritis in the past but who has had no abdominal surgical history except a hysterectomy and presents with complaints of right-sided abdominal pain that started about 4 days ago. She said that initially said that the pain started after having an episode of watery diarrhea on Friday. She said she had about 3-4 episodes of the watery diarrhea which was not black or bloody and now it is just mushy but it is not completely back to normal. She says that the pain started after the diarrhea on the right side and she points to the right mid abdomen as the location of pain. It was not a sudden onset and is gradually gotten worse and it is a deep sharp pain is not burning. She does not feel bloated and she has not had a fever chills and no flank pain. She said she has had some dark urine but no frequency or hematuria and she's had nausea but no vomiting. She has no history of food intolerance and has not had any GI problems as described above in her history since the last couple years. Said she tried some [id number] aspirin product which did help and she also had some leftover hydrocodone from a neck surgery a few months ago which also helped with the pain keeps returning and she is concerned. She has no left- sided abdominal pain and she points to the left mid abdomen underneath the ribs as the site of the discomfort. Review of systems: As per history of present illness and below otherwise all systems reviewed and negative. Past medical history: As per history of present illness and as reviewed below otherwise noncontributory. Surgical history: As per history of present illness and as reviewed below otherwise noncontributory. Social history: No reported history of drug or alcohol abuse. Family history: As per history of present illness and as reviewed below otherwise noncontributory. Physical exam: General: Well-developed well-nourished mildly overweight female who is nontoxic and vital signs are noted by me HEENT: Atraumatic, normocephalic, pupils reactive, negative for conjunctival pallor or scleral icterus, mucous membranes moist, throat clear, neck supple, nontender, trachea midline. Lungs: Clear to auscultation, breath sounds equal bilaterally, chest nontender. Heart: S1S2, regular rhythm and slightly tachycardic rate on my evaluation but no overt murmurs Abdomen: Soft, nondistended, there is some tympany in the upper abdomen and bowel sounds are slightly hypoactive. There is tenderness with palpation in the right mid abdomen area which does not seem to be in the right upper quadrant or the right lower quadrant specifically and there is no rebound or guarding Negative for masses or hepatosplenomegaly. Negative for costovertebral tenderness. Pelvis: Stable nontender. Genitourinary: Deferred. Rectal: Deferred. Extremities: Atraumatic, negative for cords or calf pain. Neurovascular unremarkable. Neuro: Awake, alert, oriented. Cranial nerves II through XII unremarkable. Cerebellum unremarkable. Motor and sensory unremarkable throughout. Exam nonfocal. Diagnostics: CBC CMP amylase lipase H. pylori UA with reflex, stool for study if patient produces, CT scan of the abdomen and pelvis Therapeutics: IV fluids Toradol morphine Zofran Cipro and Flagyl Bentyl I discussed with the patient at length her completely normal lab values and the CAT scan results including the mild diverticulitis of the descending colon which we will treat and the abnormal finding near the head of the pancreas which CT is not completely delineating. I've advised her to follow up with her provider in the clinic, Dr. Tillman at [facility]. She will need more evaluation of this area as this may be a mass that needs testing and/or biopsy. She states understanding. Impression: Right abdominal pain etiology unclear, mild diverticulitis of the descending colon, nonspecific area/mass near the head of the pancreas etiology unclear Definitive disposition and diagnosis as appropriate pending reevaluation and review of above. Right Lower Abdominal Pain Score (Numeric/FACES): 6 - Related Data Allergies Allergy/AdvReac Type Severity Reaction Status Date / Time No Known Allergies Allergy Verified 11/28/18 09:42 Home Meds: Home Meds Omeprazole [priLOSEC OTC] 20 mg PO DAILY 05/30/14 [History] traZODone HCl [Trazodone HCl] 100 mg PO BEDTIME 08/23/17 [History] Triamterene/Hydrochlorothiazid [Triamterene-HCTZ 37.5-25 MG] 1 tab PO DAILY [History] Psyllium Husk [Fiber] 0.52 gm PO BID #60 capsule 09/24/17 [Rx] Past Medical History HEENT History: Reports: None Cardiovascular History: Reports: High Cholesterol, Hypertension Respiratory History: Reports: None Gastrointestinal History: Reports: GERD, Pancreatitis, Other (See Below) Genitourinary History: Reports: None [employer] History: Reports: Musculoskeletal History: Reports: Back Pain, Chronic, Fracture, Osteoarthritis, Osteoporosis, Other (See Below) Other Musculoskeletal History: hx ashia ankle fx's Psychiatric History: Reports: Anxiety Endocrine/Metabolic History: Reports: None Hematologic History: Reports: None Immunologic History: Reports: None Oncologic (Cancer) History: Reports: None Dermatologic History: Reports: None - Infectious Disease History Infectious Disease History: Reports: None - Past Surgical History Head Surgeries/Procedures: Reports: None HEENT Surgical History: Reports: Tonsillectomy GI Surgical History: Reports: Colonoscopy, EGD, Other (See Below) Other GI Surgeries/Procedures: tummy tuck Female Surgical History: Reports: Breast Reduction, Hysterectomy, Other (See Below) Other Female Surgeries/Procedures: ashia breast reduction Neurological Surgical History: Reports: C-Spine, Lumbar Spine, Scoliosis Other Neurological Surgeries/Procedures: hx neck and back surgery Musculoskeletal Surgical History: Reports: Carpal Tunnel Social & Family History - Family History Family Medical History: Noncontributory - Tobacco Use Smoking Status *Q: Never Smoker - Caffeine Use Caffeine Use: Reports: Coffee - Recreational Drug Use Recreational Drug Use: No ED ROS GENERAL - Review of Systems Review Of Systems: ROS reveals no pertinent complaints other than HPI. ED EXAM, GENERAL - Physical Exam Exam: See Below (See dictation) Course - Vital Signs Last Recorded V/S: Last Vital Signs Temp 35.7 C 11/28/18 09:43 Pulse 83 11/28/18 09:43 Resp 16 11/28/18 09:43 BP 154/80 H 11/28/18 09:43 Pulse Ox 98 11/28/18 09:43 - Orders/Labs/Meds Orders: Active Orders 24 hr Category Date Time Status CULTURE STOOL + CAMPY+SHIGATOX [RM] Stat Lab 11/28/18 09:58 Ordered Ciprofloxacin [Ciprofloxacin HCl] Med 11/28/18 13:18 Once 500 mg PO ONETIME ONE Dicyclomine [Bentyl] Med 11/28/18 13:18 Once 10 mg PO ONETIME ONE Sodium Chloride 0.9% [Saline Flush] Med 11/28/18 09:55 Active 10 ml FLUSH ASDIRECTED PRN Sodium Chloride 0.9% [Saline Flush] Med 11/28/18 09:55 Active 2.5 ml FLUSH ASDIRECTED PRN metroNIDAZOLE/Normal Saline [Flagyl 500 MG in NS 100 ML Med 11/28/18 13:17 Ordered ] 500 mg Premix Bag 1 bag IV ONETIME Saline Lock Insert [OM.PC] Stat Oth 11/28/18 09:55 Ordered Medication Orders Ciprofloxacin (Ciprofloxacin Hcl) 500 mg PO ONETIME ONE Stop: 11/28/18 13:19 Dicyclomine HCl (Bentyl) 10 mg PO ONETIME ONE Stop: 11/28/18 13:19 Metronidazole 500 mg/ Premix 100 mls @ 100 mls/hr IV ONETIME ONE Stop: 11/28/18 14:16 Sodium Chloride (Saline Flush) 10 ml FLUSH ASDIRECTED PRN PRN Reason: Keep Vein Open Sodium Chloride (Saline Flush) 2.5 ml FLUSH ASDIRECTED PRN PRN Reason: Keep Vein Open Labs: Laboratory Tests 11/28/18 11/28/18 11/28/18 Range/Units 10:10 10:10 10:10 WBC 7.09 (4.0-11.0) K/uL RBC 4.01 L (4.30-5.90) M/uL Hgb 12.1 (12.0-16.0) g/dL Hct 36.7 (36.0-46.0) % MCV 91.5 (80.0-98.0) fL MCH 30.2 (27.0-32.0) pg MCHC 33.0 (31.0-37.0) g/dL RDW Std Deviation 41.9 (28.0-62.0) fl RDW Coeff of Vian[place] 12 (11.0-15.0) % Plt Count 272 (150-400) K/uL MPV 9.40 (7.40-12.00) fL Neut % (Auto) 73.5 (48.0-80.0) % Lymph % (Auto) 15.1 L (16.0-40.0) % [place]yer % (Auto) 8.6 (0.0-15.0) % Eos % (Auto) 2.7 (0.0-7.0) % Baso % (Auto) 0.1 (0.0-1.5) % Neut # (Auto) 5.2 (1.4-5.7) K/uL Lymph # (Auto) 1.1 (0.6-2.4) K/uL Dyer # (Auto) 0.6 (0.0-0.8) K/uL Eos # (Auto) 0.2 (0.0-0.7) K/uL Baso # (Auto) 0.0 (0.0-0.1) K/uL Nucleated RBC % 0.0 /100WBC Nucleated RBCs # 0 K/uL Sodium 138 (136-145) mmol/L Potassium 3.5 (3.5-5.1) mmol/L Chloride 100 (98-107) mmol/L Carbon Dioxide 27.9 (21.0-32.0) mmol/L BUN 15 (7.0-18.0) mg/dL Creatinine 0.9 (0.6-1.0) mg/dL Est Cr Clr Drug Dosing 54.55 mL/min Estimated GFR (MDRD) > 60.0 ml/min Glucose 108 H (74-106) mg/dL Calcium 9.5 (8.5-10.1) mg/dL Total Bilirubin 0.6 (0.2-1.0) mg/dL AST 30 (15-37) IU/L ALT 76 H (14-63) IU/L Alkaline Phosphatase 45 L (46-116) U/L Total Protein 7.9 (6.4-8.2) g/dL Albumin 4.2 (3.4-5.0) g/dL Globulin 3.7 (2.6-4.0) g/dL Albumin/Globulin Ratio 1.1 (0.9-1.6) Amylase 33 (25-115) U/L Lipase 229 (73-393) U/L Urine Color Urine Appearance Urine pH (5.0-8.0) Ur Specific [place] (1.001-1.035) Urine Protein (NEGATIVE) mg/dL Urine Glucose (UA) (NEGATIVE) mg/dL Urine Ketones (NEGATIVE) mg/dL Urine Occult Blood (NEGATIVE) Urine Nitrite (NEGATIVE) Urine Bilirubin (NEGATIVE) Urine Urobilinogen (<2.0) EU/dL Ur Leukocyte Esterase (NEGATIVE) H. pylori IgG Antibody NEGATIVE (NEG) 11/28/18 Range/Units 10:15 WBC (4.0-11.0) K/uL RBC (4.30-5.90) M/uL Hgb (12.0-16.0) g/dL Hct (36.0-46.0) % MCV (80.0-98.0) fL MCH (27.0-32.0) pg MCHC (31.0-37.0) g/dL RDW Std Deviation (28.0-62.0) fl RDW Coeff of Vianey (11.0-15.0) % Plt Count (150-400) K/uL MPV (7.40-12.00) fL Neut % (Auto) (48.0-80.0) % Lymph % (Auto) (16.0-40.0) % Dyer % (Auto) (0.0-15.0) % Eos % (Auto) (0.0-7.0) % Baso % (Auto) (0.0-1.5) % Neut # (Auto) (1.4-5.7) K/uL Lymph # (Auto) (0.6-2.4) K/uL Dyer # (Auto) (0.0-0.8) K/uL Eos # (Auto) (0.0-0.7) K/uL Baso # (Auto) (0.0-0.1) K/uL Nucleated RBC % /100WBC Nucleated RBCs # K/uL Sodium (136-145) mmol/L Potassium (3.5-5.1) mmol/L Chloride (98-107) mmol/L Carbon Dioxide (21.0-32.0) mmol/L BUN (7.0-18.0) mg/dL Creatinine (0.6-1.0) mg/dL Est Cr Clr Drug Dosing mL/min Estimated GFR (MDRD) ml/min Glucose (74-106) mg/dL Calcium (8.5-10.1) mg/dL Total Bilirubin (0.2-1.0) mg/dL AST (15-37) IU/L ALT (14-63) IU/L Alkaline Phosphatase (46-116) U/L Total Protein (6.4-8.2) g/dL Albumin (3.4-5.0) g/dL Globulin (2.6-4.0) g/dL Albumin/Globulin Ratio (0.9-1.6) Amylase (25-115) U/L Lipase (73-393) U/L Urine Color YELLOW Urine Appearance CLEAR Urine pH 5.5 (5.0-8.0) Ur Specific [place] 1.025 (1.001-1.035) Urine Protein NEGATIVE (NEGATIVE) mg/dL Urine Glucose (UA) NEGATIVE (NEGATIVE) mg/dL Urine Ketones NEGATIVE (NEGATIVE) mg/dL Urine Occult Blood NEGATIVE (NEGATIVE) Urine Nitrite NEGATIVE (NEGATIVE) Urine Bilirubin NEGATIVE (NEGATIVE) Urine Urobilinogen 0.2 (<2.0) EU/dL Ur Leukocyte Esterase NEGATIVE (NEGATIVE) H. pylori IgG Antibody (NEG) Meds: Medications Generic Name Dose Route Start Last Admin Trade Name Freq PRN Reason Stop Dose Admin Ciprofloxacin 500 mg 11/28/18 13:18 Ciprofloxacin Hcl PO 11/28/18 13:19 ONETIME ONE Dicyclomine HCl 10 mg 11/28/18 13:18 Bentyl PO 11/28/18 13:19 ONETIME ONE Metronidazole 500 mg/ Premix 100 mls @ 100 mls/hr 11/28/18 13:17 IV 11/28/18 14:16 ONETIME ONE Sodium Chloride 10 ml 11/28/18 09:55 Saline Flush FLUSH ASDIRECTED PRN Keep Vein Open Sodium Chloride 2.5 ml 11/28/18 09:55 Saline Flush FLUSH ASDIRECTED PRN Keep Vein Open Discontinued Medications Generic Name Dose Route Start Last Admin Trade Name Freq PRN Reason Stop Dose Admin Sodium Chloride 1,000 mls @ 999 mls/hr 11/28/18 09:55 11/28/18 10:09 Normal Saline IV 11/28/18 10:55 999 mls/hr STAT ONE Administration Iopamidol 100 ml 11/28/18 11:36 11/28/18 11:36 Isovue Multipack-370 (76%) IVPUSH 11/28/18 11:37 100 ml ONETIME ONE Administration Ketorolac Tromethamine 30 mg 11/28/18 09:55 11/28/18 10:09 Toradol IVPUSH 11/28/18 09:56 30 mg ONETIME ONE Administration Morphine Sulfate 4 mg 11/28/18 09:55 11/28/18 10:09 Morphine IVPUSH 11/28/18 09:56 4 mg ONETIME ONE Administration Ondansetron HCl 4 mg 11/28/18 09:55 11/28/18 10:09 Zofran IVPUSH 11/28/18 09:56 4 mg ONETIME ONE Administration Departure - Departure Time of Disposition: 13:20 Disposition: Home, Self-Care 01 Condition: Good Clinical Impression: Diverticulitis, Abnormal finding on CT scan Abdominal pain Qualifiers: Abdominal location: unspecified location Qualified Code(s): R10.9 - Unspecified abdominal pain - Discharge Information Referrals: Von Tillman MD [Primary Care Provider] - Forms: ED Department Discharge Additional Instructions: The following information is given to patients seen in the emergency department who are being discharged to home. This information is to outline your options for follow-up care. We provide all patients seen in our emergency department with a follow-up referral. The need for follow-up, as well as the timing and circumstances, are variable depending upon the specifics of your emergency department visit. If you don't have a primary care physician on staff, we will provide you with a referral. We always advise you to contact your personal physician following an emergency department visit to inform them of the circumstance of the visit and for follow-up with them and/or the need for any referrals to a consulting specialist. The emergency department will also refer you to a specialist when appropriate. This referral assures that you have the opportunity for followup care with a specialist. All of these measure are taken in an effort to provide you with optimal care, which includes your followup. Under all circumstances we always encourage you to contact your private physician who remains a resource for coordinating your care. When calling for followup care, please make the office aware that this follow-up is from your recent emergency room visit. If for any reason you are refused follow-up, please contact the [facility] emergency department at and ask to speak to the emergency department charge nurse. [address] [place] [address] Please take medications as prescribed for the diverticulitis and push hydration and increase fiber in your diet. Please call and schedule a follow-up appointment with your provider Dr. Tillman or one of his associates for further management of today's CT scan findings, you may need more testing or evaluation for this area that cannot be explained on your CAT scan. Return to ER as needed as discussed - My Orders Last 24 Hours: My Active Orders 11/28/18 09:55 Sodium Chloride 0.9% [Saline Flush] 10 ml FLUSH ASDIRECTED PRN Sodium Chloride 0.9% [Saline Flush] 2.5 ml FLUSH ASDIRECTED PRN Saline Lock Insert [OM.PC] Stat 11/28/18 09:58 CULTURE STOOL + CAMPY+SHIGATOX [RM] Stat 11/28/18 13:17 metroNIDAZOLE/Normal Saline [Flagyl 500 MG in NS 100 ML] 500 mg Premix Bag 1 bag IV ONETIME 11/28/18 13:18 Ciprofloxacin [Ciprofloxacin HCl] 500 mg PO ONETIME ONE Dicyclomine [Bentyl] 10 mg PO ONETIME ONE - Assessment/Plan Last 24 Hours: My Active Orders 11/28/18 09:55 Sodium Chloride 0.9% [Saline Flush] 10 ml FLUSH ASDIRECTED PRN Sodium Chloride 0.9% [Saline Flush] 2.5 ml FLUSH ASDIRECTED PRN Saline Lock Insert [OM.PC] Stat 11/28/18 09:58 CULTURE STOOL + CAMPY+SHIGATOX [RM] Stat 11/28/18 13:17 metroNIDAZOLE/Normal Saline [Flagyl 500 MG in NS 100 ML] 500 mg Premix Bag 1 bag IV ONETIME 11/28/18 13:18 Ciprofloxacin [Ciprofloxacin HCl] 500 mg PO ONETIME ONE Dicyclomine [Bentyl] 10 mg PO ONETIME ONE
[2018-11-28 10:47] LABS: CHLORIDE,CL 100 mmol/L (98-107); SODIUM,NA 138 mmol/L (136-145)
[2018-11-28] MEDS ORDERED: Iopamidol 755 MG/ML 500 ML Multipack Bottle IVPUSH ONE (11:36)
--- NOTE | 2018-11-28 13:01 | CT ---
Indication: Right-sided abdominal pain Technique: Routine post-contrast CT of the abdomen and pelvis performed. Please note that all CT scans at this facility use dose modulation, iterative reconstruction, and/or weight-based dosing when appropriate to reduce radiation dose to as low as reasonably achievable. Comparison: CT September 07, 2014 Findings: Chronic atelectasis/scarring both lung bases, left greater than right. Postoperative changes to the thoracolumbar junction. Scoliotic deformity. No acute fracture. Diffuse fatty infiltration of the liver. No intrahepatic masses. Gallbladder normal. No biliary obstruction. There is ill-defined decreased density in the retroperitoneum between the pancreatic head and 3rd portion of the duodenum as well as infiltrating between the superior mesenteric artery and superior mesenteric vein, measuring approximately 2 centimeters in transverse dimension and extending over a length of 3.5 centimeters. The pancreatic tail is normal. Adrenal glands are intact. Ectopic position of the right kidney with chronic prominence of the right renal pelvis. No hydronephrosis. No renal or ureteral stone. No solid renal mass. Normal pancreas. Chronic elevation left hemidiaphragm. No bowel obstruction. Mild inflammatory change adjacent to the distal descending colon, images [id number] on the axial series. No abscess. No free air. Bladder normal. No adnexal mass. Uterus surgically absent. Impression: Mild diverticulitis of the distal descending colon without abscess or obstruction. Ill-defined decreased density adjacent to the pancreatic head infiltrating between the superior mesenteric vein and artery measuring approximately 2 x 3.5 centimeters, concerning for infiltrating neoplasm although focal pancreatitis could also cause this appearance. Please note that all CT scans at this facility use dose modulation, iterative reconstruction, and/or weight-based dosing when appropriate to reduce radiation dose to as low as reasonably achievable. Dictated by Sukhdeep Glynn MD @ Nov 28 2018 12:49PM Signed by Dr. Sukhdeep Glynn @ Nov 28 2018 1:00PM
[2018-11-28] MEDS ORDERED: metroNIDAZOLE/Normal Saline 500 MG in Premix Bag 1 BAG IV ONE (13:17)
[2018-11-28] MEDS ORDERED: Ciprofloxacin 500 MG Tab PO ONE (13:18)
[2018-11-28] MEDS ORDERED: Dicyclomine 10 MG Cap PO ONE (13:18)
[2018-11-28 16:37] VITALS: BP 102/48
== END 2018-11-28 14:55 | disposition home or self-care (01) ==
LOC: MW.ED 09:34
DX: K57.32 Diverticulitis of large intestine without perforation or abscess without bleeding (principal); R93.5 Abnormal findings on diagnostic imaging of other abdominal regions, including retroperitoneum; I10 Essential (primary) hypertension; E78.00 Pure hypercholesterolemia, unspecified; K21.9 Gastro-esophageal reflux disease without esophagitis; F41.9 Anxiety disorder, unspecified; Z79.899 Other long term (current) drug therapy
CPT/HCPCS: 74177; 80053; 81003; 82150; 83690; 85025; 86677; 96361; 96365; 96375; 99284; A9270; J1885; J2270; J2405; J3490; J7040; Q9967

== ENCOUNTER 2019-05-12 09:43 | Emergency (ER) | payer BC ==
--- NOTE | 2019-05-12 10:13 | EDM.PDOC ---
ED HPI GENERAL MEDICAL PROBLEM - General Chief Complaint: General Stated Complaint: DRAIN TUBE COMPLAINT Time Seen by Provider: 05/12/19 10:13 Source of Information: Reports: Patient History Limitations: Reports: No Limitations - History of Present Illness INITIAL COMMENTS - FREE TEXT/NARRATIVE: HISTORY AND PHYSICAL: History of present illness: Patient is a 54-year-old female presents to the ED with complaint of drainage from the site of her drain site in her back. She states on the 21 of April she had a drain placed in her pancreas due to a cyst by a surgeon in [place]. She states the drain has been collecting a greenish brown drainage since the surgery and this has not changed. She is concerned that her noticed around the site of the drain placement in her back there was a small amount of greenish discharge. She states the bandage has not been replaced since her procedure. She denies back pain but reports an occasional mild epigastric abdominal pain. She denies fevers, chills, nausea, vomiting, diarrhea, chest pain, SOB. She has a follow up in [place] on 05/26. Review of systems: As per history of present illness and below otherwise all systems reviewed and negative. Past medical history: As per history of present illness and as reviewed below otherwise noncontributory. Surgical history: As per history of present illness and as reviewed below otherwise noncontributory. Social history: No reported history of drug or alcohol abuse. Family history: As per history of present illness and as reviewed below otherwise noncontributory. Physical exam: General: Patient sitting comfortably in no acute distress and nontoxic appearing HEENT: Atraumatic, normocephalic, pupils reactive, negative for conjunctival pallor or scleral icterus, mucous membranes moist, throat clear, neck supple, nontender, trachea midline. No meningeal signs. Lungs: Clear to auscultation, breath sounds equal bilaterally, chest nontender. Heart: S1S2, regular, negative for clicks, rubs, or overt murmur. Abdomen: Drain to the left upper back with slight erythema consistent with a normal healing process. There is a minimal amount of green tinged serous drainage without purulence. No pain to palpation, fluctuance, or induration. Soft, nondistended, nontender. Negative for masses or hepatosplenomegaly. Negative for costovertebral tenderness. No rigidity, rebound, guarding. Pelvis: Stable nontender. Genitourinary: Deferred. Rectal: Deferred. Extremities: Atraumatic, negative for cords or calf pain. Neurovascular unremarkable. Neuro: Awake, alert, oriented. Cranial nerves II through XII unremarkable. Cerebellum unremarkable. Motor and sensory unremarkable throughout. Exam nonfocal. Notes: Discussed with Dr. Bowie, general surgeon at [facility], she advised patient follow up at her regular appointment but may schedule a sooner appointment if desired. Diagnostics: CBC, CMP Therapeutics: none Prescriptions: none Impression: Surgical wound serous drainage Plan: Follow up with general surgeon, you may call to make a sooner appointment if desired Return to ED as needed as discussed Definitive disposition and diagnosis as appropriate pending reevaluation and review of above. - Related Data Allergies Allergy/AdvReac Type Severity Reaction Status Date / Time No Known Allergies Allergy Verified 05/12/19 10:03 Home Meds: Home Meds Fenofibric Acid (Choline) [Fenofibric Acid] 135 mg PO DAILY 05/12/19 [History] Pantoprazole Sodium 1 tab PO DAILY 05/12/19 [History] Telmisartan [Micardis] 1 tab PO DAILY 05/12/19 [History] traZODone HCl [Trazodone HCl] 1 - 2 tab PO BEDTIME 05/12/19 [History] Past Medical History HEENT History: Reports: None Cardiovascular History: Reports: High Cholesterol, Hypertension Respiratory History: Reports: None Gastrointestinal History: Reports: GERD, Pancreatitis, Other (See Below) Genitourinary History: Reports: None 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: Musculoskeletal History: Reports: Back Pain, Chronic, Fracture, Osteoarthritis, Osteoporosis, Other (See Below) Other Musculoskeletal History: hx ashia ankle fx's Psychiatric History: Reports: Anxiety Endocrine/Metabolic History: Reports: None Hematologic History: Reports: None Immunologic History: Reports: None Oncologic (Cancer) History: Reports: None Dermatologic History: Reports: None - Infectious Disease History Infectious Disease History: Reports: Chicken Pox - Past Surgical History Head Surgeries/Procedures: Reports: None HEENT Surgical History: Reports: Tonsillectomy GI Surgical History: Reports: Colonoscopy, EGD, Other (See Below) Other GI Surgeries/Procedures: tummy tuck. pancreatic drain placement Female Surgical History: Reports: Breast Reduction, Hysterectomy, Other (See Below) Other Female Surgeries/Procedures: ashia breast reduction Neurological Surgical History: Reports: C-Spine, Lumbar Spine, Scoliosis Other Neurological Surgeries/Procedures: hx neck and back surgery Musculoskeletal Surgical History: Reports: Carpal Tunnel Social & Family History - Family History Family Medical History: Noncontributory - Tobacco Use Smoking Status *Q: Never Smoker - Caffeine Use Caffeine Use: Reports: Coffee - Recreational Drug Use Recreational Drug Use: No ED ROS GENERAL - Review of Systems Review Of Systems: ROS reveals no pertinent complaints other than HPI. ED EXAM, GENERAL - Physical Exam Exam: See Below (see dictation) Course - Vital Signs Last Recorded V/S: Last Vital Signs Temp 98.0 F 05/12/19 10:00 Pulse 77 05/12/19 10:00 Resp 18 05/12/19 10:00 BP 147/78 H 05/12/19 10:00 Pulse Ox 96 05/12/19 10:00 - Orders/Labs/Meds Labs: Laboratory Tests 05/12/19 05/12/19 Range/Units 10:28 10:28 WBC 3.50 L (4.0-11.0) K/uL RBC 3.85 L (4.30-5.90) M/uL Hgb 11.3 L (12.0-16.0) g/dL Hct 34.4 L (36.0-46.0) % MCV 89.4 (80.0-98.0) fL MCH 29.4 (27.0-32.0) pg MCHC 32.8 (31.0-37.0) g/dL RDW Std Deviation 40.4 (28.0-62.0) fl RDW Coeff of Vianey 13 (11.0-15.0) % Plt Count 278 (150-400) K/uL MPV 9.50 (7.40-12.00) fL Neut % (Auto) 58.2 (48.0-80.0) % Lymph % (Auto) 28.9 (16.0-40.0) % [place] % (Auto) 7.4 (0.0-15.0) % Eos % (Auto) 4.9 (0.0-7.0) % Baso % (Auto) 0.6 (0.0-1.5) % Neut # (Auto) 2.0 (1.4-5.7) K/uL Lymph # (Auto) 1.0 (0.6-2.4) K/uL [place] # (Auto) 0.3 (0.0-0.8) K/uL Eos # (Auto) 0.2 (0.0-0.7) K/uL Baso # (Auto) 0.0 (0.0-0.1) K/uL Nucleated RBC % 0.0 /100WBC Nucleated RBCs # 0 K/uL Sodium 141 (136-145) mmol/L Potassium 3.4 L (3.5-5.1) mmol/L Chloride 105 (98-107) mmol/L Carbon Dioxide 27.7 (21.0-32.0) mmol/L BUN 14 (7.0-18.0) mg/dL Creatinine 0.8 (0.6-1.0) mg/dL Est Cr Clr Drug Dosing 60.66 mL/min Estimated GFR (MDRD) > 60.0 ml/min Glucose 126 H (74-106) mg/dL Calcium 9.0 (8.5-10.1) mg/dL Total Bilirubin 0.4 (0.2-1.0) mg/dL AST 37 (15-37) IU/L ALT 51 (14-63) IU/L Alkaline Phosphatase 42 L (46-116) U/L Total Protein 6.8 (6.4-8.2) g/dL Albumin 3.5 (3.4-5.0) g/dL Globulin 3.3 (2.6-4.0) g/dL Albumin/Globulin Ratio 1.1 (0.9-1.6) Departure - Departure Time of Disposition: 11:23 Disposition: Home, Self-Care 01 Condition: Good Clinical Impression: Encounter for medical screening examination, Drainage from wound - Discharge Information Referrals: Omero Little MD [Primary Care Provider] - Forms: ED Department Discharge Additional Instructions: The following information is given to patients seen in the emergency department who are being discharged to home. This information is to outline your options for follow-up care. We provide all patients seen in our emergency department with a follow-up referral. The need for follow-up, as well as the timing and circumstances, are variable depending upon the specifics of your emergency department visit. If you don't have a primary care physician on staff, we will provide you with a referral. We always advise you to contact your personal physician following an emergency department visit to inform them of the circumstance of the visit and for follow-up with them and/or the need for any referrals to a consulting specialist. The emergency department will also refer you to a specialist when appropriate. This referral assures that you have the opportunity for follow-up care with a specialist. All of these measure are taken in an effort to provide you with optimal care, which includes your follow-up. Under all circumstances we always encourage you to contact your private physician who remains a resource for coordinating your care. When calling for follow-up care, please make the office aware that this follow-up is from your recent emergency room visit. If for any reason you are refused follow-up, please contact the [facility] Emergency Department at and asked to speak to the emergency department charge nurse. [facility] [address] [place] [id number] [address] Follow up with general surgeon, you may call to make a sooner appointment if desired Return to ED as needed as discussed
[2019-05-12 11:15] LABS: BLOOD UREA NITROGEN,BUN 14 mg/dL (7.0-18.0); CARBON DIOXIDE,CO2 27.7 mmol/L (21.0-32.0); CHLORIDE,CL 105 mmol/L (98-107); GLUCOSE RANDOM 126 mg/dL (74-106); POTASSIUM,K 3.4 mmol/L (3.5-5.1); SODIUM,NA 141 mmol/L (136-145)
[2019-05-12 11:55] VITALS: BP 139/79; PULSE 76
== END 2019-05-12 11:55 | disposition home or self-care (01) ==
LOC: MW.ED 09:43
DX: M96.89 Other intraoperative and postprocedural complications and disorders of the musculoskeletal system (principal); I10 Essential (primary) hypertension; K21.9 Gastro-esophageal reflux disease without esophagitis; F41.9 Anxiety disorder, unspecified; Z79.899 Other long term (current) drug therapy
CPT/HCPCS: 36415; 80053; 85025; 99283

== ENCOUNTER 2019-07-12 09:23 | Emergency (ER) | payer BC ==
[2019-07-12 09:41] VITALS: PULSE 69
--- NOTE | 2019-07-12 09:59 | EDM.PDOC ---
ED HPI GENERAL MEDICAL PROBLEM - General Chief Complaint: Lower Extremity Injury/Pain Stated Complaint: FELL Time Seen by Provider: 07/12/19 09:54 Source of Information: Reports: Patient History Limitations: Reports: No Limitations - History of Present Illness INITIAL COMMENTS - FREE TEXT/NARRATIVE: HISTORY AND PHYSICAL: History of present illness: Patient is a 54-year-old female who presents to the ED today with concern of right ankle pain and low back pain after a fall that occurred prior to arrival to the ED. Patient states she currently has a abdominal drain in place for pancreatitis placed at [facility] that she had a cyst that she's had in for several months. Patient states she has an appointment next month to get the drain removed. Patient states that she is unable to get this area wet so she has been leaning over the shower using the shower head to get her hair washed. Patient states she slipped while washing her hair this morning and twisted her right ankle and landed on her back. Patient states she has right ankle pain and low back pain. She denies any loss or retention of bowel or bladder function or saddle anesthesia. Patient states she did not hit her head and did not lose consciousness. Patient denies any other symptoms or concerns. Patient denies fever, chills, chest pain, shortness of breath, or cough. Denies headache, neck stiff ness, change in vision, syncope, or near syncope. Denies nausea, vomiting, abdominal pain, diarrhea, constipation, or dysuria. Has not noted any blood in urine or stool. Patient has been eating and drinking appropriately. Review of systems: As per history of present illness and below otherwise all systems reviewed and negative. Past medical history: As per history of present illness and as reviewed below otherwise noncontributory. Surgical history: As per history of present illness and as reviewed below otherwise noncontributory. Social history: See social history for further information Family history: As per history of present illness and as reviewed below otherwise noncontributory. Physical exam: General: Patient is alert, oriented, and in no acute distress. Patient sitting comfortably on exam table. HEENT: Atraumatic, normocephalic, pupils equal and reactive bilaterally, negative for conjunctival pallor or scleral icterus, mucous membranes moist, TMs normal bilaterally, throat clear, neck supple, nontender, trachea midline. No drooling or trismus noted. No meningeal signs. No hot potato voice noted. Lungs: Clear to auscultation, breath sounds equal bilaterally, chest nontender. Heart: S1S2, regular rate and rhythm without overt murmur Abdomen: Soft, nondistended, nontender.Surgical drain in place with a small amount of serosanguineous fluid in the drain without erythema or drainage around the insertion site. Negative for masses or hepatosplenomegaly. Negative for costovertebral tenderness. Pelvis: Stable nontender. Genitourinary: Deferred. Rectal: Deferred. Skin: Intact, warm, dry. No lesions or rashes noted. Extremities/musculoskeletal: Negative for cords or calf pain. Neurovascular unremarkable. No evidence deformity of complete bilateral lower extremities. Patient does have full range of motion of bilateral lower lower extremities but does have pain with palpation of the lateral malleolus of the right ankle. Dorsalis pedis and posterior tibial pulses are grossly intact bilaterally with capillary refill less than 2 seconds. No obvious deformity of the complete spine. Scarring of the spine consistent with surgical history. Patient does have full range of motion of complete spine but does have pain with range of motion of the lumbar spine. No step-offs, crepitus, or point tenderness to palpation of the lumbar spine but she does have mild pain with palpation of the right-sided paraspinous muscles of the lumbar spine. Neuro: Awake, alert, oriented. Cranial nerves II through XII unremarkable. Cerebellum unremarkable. Motor and sensory unremarkable throughout. Exam nonfocal. Notes: Discussed the importance for follow-up with a primary care provider or orthopedic provider. Voices understanding and is agreeable to plan of care. Denies any further questions or concerns at this time. Diagnostics: CBC, CMP, UA, EKG, CXR, Troponin, Right ankle XR, lumbar XR Therapeutics: Air splint, crutches Prescription: Diclofenac, Flexeril Impression: Right ankle pain Low back pain Plan: 1. Rest, ice, elevate the affected extremity. You can apply ice 15 minutes on, 15 minutes off. 2. Tylenol and/or Ibuprofen as directed for pain management or discomfort. 3. Follow up with the Orthopedic provider or primary care provider as discussed. Return to the ED as needed and as discussed. Definitive disposition and diagnosis as appropriate pending reevaluation and review of above. Right Ankle Pain Score (Numeric/FACES): 9 - Related Data Allergies Allergy/AdvReac Type Severity Reaction Status Date / Time No Known Allergies Allergy Verified 07/12/19 09:39 Home Meds: Home Meds Fenofibric Acid (Choline) [Fenofibric Acid] 135 mg PO DAILY 05/12/19 [History] Pantoprazole Sodium 1 tab PO DAILY 05/12/19 [History] traZODone HCl [Trazodone HCl] 1 - 2 tab PO BEDTIME 05/12/19 [History] Cyclobenzaprine [Flexeril] 10 mg PO TID PRN #9 tab 07/12/19 [Rx] Diclofenac Sodium [Voltaren] 75 mg PO BIDMEALS PRN #15 tab.cr 07/12/19 [Rx] Past Medical History HEENT History: Reports: None Cardiovascular History: Reports: High Cholesterol, Hypertension Respiratory History: Reports: None Gastrointestinal History: Reports: GERD, Pancreatitis, Other (See Below) Genitourinary History: Reports: None 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: Musculoskeletal History: Reports: Back Pain, Chronic, Fracture, Osteoarthritis, Osteoporosis, Other (See Below) Other Musculoskeletal History: hx ashia ankle fx's Psychiatric History: Reports: Anxiety Endocrine/Metabolic History: Reports: None Hematologic History: Reports: None Immunologic History: Reports: None Oncologic (Cancer) History: Reports: None Dermatologic History: Reports: None - Infectious Disease History Infectious Disease History: Reports: Chicken Pox - Past Surgical History Head Surgeries/Procedures: Reports: None HEENT Surgical History: Reports: Tonsillectomy GI Surgical History: Reports: Colonoscopy, EGD, Other (See Below) Other GI Surgeries/Procedures: tummy tuck. pancreatic drain placement Female Surgical History: Reports: Breast Reduction, Hysterectomy, Other (See Below) Other Female Surgeries/Procedures: ashia breast reduction Neurological Surgical History: Reports: C-Spine, Lumbar Spine, Scoliosis Other Neurological Surgeries/Procedures: hx neck and back surgery Musculoskeletal Surgical History: Reports: Carpal Tunnel Social & Family History - Family History Family Medical History: Noncontributory - Tobacco Use Smoking Status *Q: Never Smoker - Caffeine Use Caffeine Use: Reports: Coffee, Energy Drinks - Recreational Drug Use Recreational Drug Use: No Review of Systems - Review of Systems Review Of Systems: Comprehensive ROS is negative, except as noted in HPI. ED EXAM, GENERAL - Physical Exam Exam: See Below (see dictation) Course - Vital Signs Last Recorded V/S: Last Vital Signs Temp 97.5 F 07/12/19 09:39 Pulse 69 07/12/19 09:39 Resp 17 07/12/19 09:39 BP 142/86 H 07/12/19 09:39 Pulse Ox 100 07/12/19 09:39 - Orders/Labs/Meds Orders: Active Orders 24 hr Category Date Time Status EKG Documentation Completion [RC] STAT Care 07/12/19 09:58 Active DME for Discharge [COMM] Stat Oth 07/12/19 11:25 Ordered Labs: Laboratory Tests 07/12/19 07/12/19 07/12/19 Range/Units 10:12 10:12 10:20 WBC 8.31 (4.0-11.0) K/uL RBC 3.86 L (4.30-5.90) M/uL Hgb 10.6 L (12.0-16.0) g/dL Hct 33.1 L (36.0-46.0) % MCV 85.8 (80.0-98.0) fL MCH 27.5 (27.0-32.0) pg MCHC 32.0 (31.0-37.0) g/dL RDW Std Deviation 45.4 (28.0-62.0) fl RDW Coeff of Vianey 15 (11.0-15.0) % Plt Count 279 (150-400) K/uL MPV 8.90 (7.40-12.00) fL Neut % (Auto) 78.1 (48.0-80.0) % Lymph % (Auto) 14.7 L (16.0-40.0) % [place] % (Auto) 4.2 (0.0-15.0) % Eos % (Auto) 2.9 (0.0-7.0) % Baso % (Auto) 0.1 (0.0-1.5) % Neut # (Auto) 6.5 H (1.4-5.7) K/uL Lymph # (Auto) 1.2 (0.6-2.4) K/uL [place] # (Auto) 0.4 (0.0-0.8) K/uL Eos # (Auto) 0.2 (0.0-0.7) K/uL Baso # (Auto) 0.0 (0.0-0.1) K/uL Nucleated RBC % 0.0 /100WBC Nucleated RBCs # 0 K/uL Sodium 141 (136-145) mmol/L Potassium 3.9 (3.5-5.1) mmol/L Chloride 104 (98-107) mmol/L Carbon Dioxide 28.8 (21.0-32.0) mmol/L BUN 12 (7.0-18.0) mg/dL Creatinine 0.9 (0.6-1.0) mg/dL Est Cr Clr Drug Dosing 53.92 mL/min Estimated GFR (MDRD) > 60.0 ml/min Glucose 112 H (74-106) mg/dL Calcium 9.2 (8.5-10.1) mg/dL Total Bilirubin 0.4 (0.2-1.0) mg/dL AST 33 (15-37) IU/L ALT 40 (14-63) IU/L Alkaline Phosphatase 54 (46-116) U/L Troponin I < 0.050 (0.000-0.056) ng/mL Total Protein 7.4 (6.4-8.2) g/dL Albumin 3.8 (3.4-5.0) g/dL Globulin 3.6 (2.6-4.0) g/dL Albumin/Globulin Ratio 1.1 (0.9-1.6) Urine Color YELLOW Urine Appearance CLEAR Urine pH 7.0 (5.0-8.0) Ur Specific Divide 1.020 (1.001-1.035) Urine Protein NEGATIVE (NEGATIVE) mg/dL Urine Glucose (UA) NEGATIVE (NEGATIVE) mg/dL Urine Ketones NEGATIVE (NEGATIVE) mg/dL Urine Occult Blood NEGATIVE (NEGATIVE) Urine Nitrite NEGATIVE (NEGATIVE) Urine Bilirubin NEGATIVE (NEGATIVE) Urine Urobilinogen 0.2 (<2.0) EU/dL Ur Leukocyte Esterase NEGATIVE (NEGATIVE) Departure - Departure Time of Disposition: 11:28 Disposition: Home, Self-Care 01 Clinical Impression: Ankle pain Qualifiers: Chronicity: acute Laterality: right Qualified Code(s): M25.571 - Pain in right ankle and joints of right foot Low back pain Qualifiers: Chronicity: acute Back pain laterality: right Sciatica presence: without sciatica Qualified Code(s): M54.5 - Low back pain - Discharge Information Prescriptions: Cyclobenzaprine [Flexeril] 10 mg PO TID PRN #9 tab PRN Reason: Spasms Diclofenac Sodium [Voltaren] 75 mg PO BIDMEALS PRN #15 tab.cr PRN Reason: Pain Referrals: Von Tillman MD [Primary Care Provider] - Forms: ED Department Discharge Additional Instructions: The following information is given to patients seen in the emergency department who are being discharged to home. This information is to outline your options for follow-up care. We provide all patients seen in our emergency department with a follow-up referral. The need for follow-up, as well as the timing and circumstances, are variable depending upon the specifics of your emergency department visit. If you don't have a primary care physician on staff, we will provide you with a referral. We always advise you to contact your personal physician following an emergency department visit to inform them of the circumstance of the visit and for follow-up with them and/or the need for any referrals to a consulting specialist. The emergency department will also refer you to a specialist when appropriate. This referral assures that you have the opportunity for follow-up care with a specialist. All of these measure are taken in an effort to provide you with optimal care, which includes your follow-up. Under all circumstances we always encourage you to contact your private physician who remains a resource for coordinating your care. When calling for follow-up care, please make the office aware that this follow-up is from your recent emergency room visit. If for any reason you are refused follow-up, please contact the [facility] Emergency Department at and asked to speak to the emergency department charge nurse. [facility] [address] [place] [id number] [address] [facility] - [facility] Professional Building [address] [facility], [address] [place] [address] 1. Rest, ice, elevate the affected extremity. You can apply ice 15 minutes on, 15 minutes off. 2. Tylenol and/or Ibuprofen as directed for pain management or discomfort. 3. Follow up with the Orthopedic provider or primary care provider as discussed. Return to the ED as needed and as discussed. Sepsis Event Note - Evaluation Sepsis Screening Result: No Definite Risk - Focused Exam Vital Signs: Vital Signs Temp Pulse Resp BP Pulse Ox 07/12/19 09:39 97.5 F 69 17 142/86 H 100 Date Exam was Performed: 07/12/19 Time Exam was Performed: 11:28 - My Orders Last 24 Hours: My Active Orders 07/12/19 09:58 EKG Documentation Completion [RC] STAT 07/12/19 11:25 DME for Discharge [COMM] Stat - Assessment/Plan Last 24 Hours: My Active Orders 07/12/19 09:58 EKG Documentation Completion [RC] STAT 07/12/19 11:25 DME for Discharge [COMM] Stat
[2019-07-12 10:55] LABS: BLOOD UREA NITROGEN,BUN 12 mg/dL (7.0-18.0); CARBON DIOXIDE,CO2 28.8 mmol/L (21.0-32.0); CHLORIDE,CL 104 mmol/L (98-107); GLUCOSE RANDOM 112 mg/dL (74-106); POTASSIUM,K 3.9 mmol/L (3.5-5.1); SODIUM,NA 141 mmol/L (136-145)
--- NOTE | 2019-07-12 11:24 | CR ---
EXAM DATE: 07/12/19 PATIENT'S AGE: 54 Right ankle: Three views of the right ankle were obtained. Comparison: No previous ankle study. Ankle mortise is symmetric. No fracture, dislocation or other bony abnormality is seen. Impression: 1. No abnormality is identified on right ankle exam. Diagnostic code #1 This report was dictated in [place] Standard Time Report Signed by Proxy. JACQUI
--- NOTE | 2019-07-12 11:25 | CR ---
EXAM DATE: 07/12/19 PATIENT'S AGE: 54 Chest: PA view of the chest was obtained. Comparison: Prior chest x-ray of 08/23/17. Heart size and mediastinum are normal. Previous cervical spine surgery and thoracic spine surgery is noted. Pigtail catheter is noted within the left upper abdomen. Slight atelectasis is seen within the left base. Lungs otherwise are clear. Impression: 1. Findings as noted above. 2. Nothing acute is appreciated. Diagnostic code #2 This report was dictated in [place] Standard Time Report Signed by Proxy. [facility]
--- NOTE | 2019-07-12 11:26 | CR ---
EXAM DATE: 07/12/19 PATIENT'S AGE: 54 Lumbar spine: AP, lateral, and coned-down lateral view centered to the lumbosacral junction were obtained. Comparison: Previous lumbar spine study of 06/08/18. Spinal fixation rods are seen within the thoracic and upper lumbar spine. Scoliosis is noted within the spine. Pigtail catheter is noted within the left abdomen. Two additional catheter stents are seen within the left abdomen. Sacroiliac joints are normal. Bowel gas pattern appears normal. No acute bony abnormality is noted. Impression: 1. Findings as noted above. 2. Nothing acute is identified. 3. No significant change from previous study is seen within the spine. Diagnostic code #2 This report was dictated in [place] Standard Time Report Signed by Proxy. [facility]
[2019-07-12 11:43] VITALS: BP 131/64
== END 2019-07-12 11:43 | disposition home or self-care (01) ==
LOC: MW.ED 09:23
DX: M25.571 Pain in right ankle and joints of right foot (principal); M54.5 Low back pain; E78.00 Pure hypercholesterolemia, unspecified; I10 Essential (primary) hypertension; K21.9 Gastro-esophageal reflux disease without esophagitis; F41.9 Anxiety disorder, unspecified; Z79.899 Other long term (current) drug therapy; W01.0XXA Fall on same level from slipping, tripping and stumbling without subsequent striking against object, initial encounter; X50.1XXA Overexertion from prolonged static or awkward postures, initial encounter; Y93.E1 Activity, personal bathing and showering; Y92.89 Other specified places as the place of occurrence of the external cause
CPT/HCPCS: 36415; 71045; 71045-26; 72100; 72100-26; 73610-26-RT; 73610-RT; 80053; 81003; 84484; 85025; 93005; 99283; 99284-25

== ENCOUNTER 2021-02-24 11:03 | Emergency (ER) | payer BC, OTHER ==
--- NOTE | 2021-02-24 11:23 | EDM.PDOC ---
ED HPI GENERAL MEDICAL PROBLEM - General Chief Complaint: Upper Extremity Injury/Pain Stated Complaint: SHOULDER INJURY Time Seen by Provider: 02/24/21 11:04 Source of Information: Reports: Patient History Limitations: Reports: No Limitations - History of Present Illness INITIAL COMMENTS - FREE TEXT/NARRATIVE: HISTORY AND PHYSICAL: History of present illness: Patient denies fever, chills, chest pain, shortness of breath, or cough. Denies headache, neck stiff ness, change in vision, syncope, or near syncope. Denies nausea, vomiting, abdominal pain, diarrhea, constipation, or dysuria. Has not noted any blood in urine or stool. Patient has been eating and drinking appropriately. Review of systems: As per history of present illness and below otherwise all systems reviewed and negative. Past medical history: As per history of present illness and as reviewed below otherwise noncontributory. Surgical history: As per history of present illness and as reviewed below otherwise noncontributory. Social history: See social history for further information Family history: As per history of present illness and as reviewed below otherwise noncontributory. Physical exam: General: Patient is alert, oriented, and in no acute distress. Patient sitting comfortably on exam table. HEENT: Atraumatic, normocephalic, pupils equal and reactive bilaterally, negative for conjunctival pallor or scleral icterus, mucous membranes moist, TMs normal bilaterally, throat clear, neck supple, nontender, trachea midline. No drooling or trismus noted. No meningeal signs. No hot potato voice noted. Lungs: Clear to auscultation, breath sounds equal bilaterally, chest nontender. Heart: S1S2, regular rate and rhythm without overt murmur Abdomen: Soft, nondistended, nontender. Negative for masses or hepatosplenomegaly. Negative for costovertebral tenderness. Pelvis: Stable nontender. Genitourinary: Deferred. Rectal: Deferred. Skin: Intact, warm, dry. No lesions or rashes noted. Extremities: Atraumatic, negative for cords or calf pain. Neurovascular unremarkable. Neuro: Awake, alert, oriented. Cranial nerves II through XII unremarkable. Cerebellum unremarkable. Motor and sensory unremarkable throughout. Exam nonfocal. Notes: Voices understanding and is agreeable to plan of care. Denies any further questions or concerns at this time. Diagnostics: Therapeutics: Prescription: Impression: Plan: Definitive disposition and diagnosis as appropriate pending reevaluation and review of above. - Related Data Allergies Allergy/AdvReac Type Severity Reaction Status Date / Time No Known Allergies Allergy Verified 07/12/19 09:39 Home Meds: Home Meds Fenofibric Acid (Choline) [Fenofibric Acid] 135 mg PO DAILY 05/12/19 [History] Pantoprazole Sodium 1 tab PO DAILY 05/12/19 [History] traZODone HCl [Trazodone HCl] 1 - 2 tab PO BEDTIME 05/12/19 [History] Cyclobenzaprine [Flexeril] 10 mg PO TID PRN #9 tab 07/12/19 [Rx] Diclofenac Sodium [Voltaren] 75 mg PO BIDMEALS PRN #15 tab.cr 07/12/19 [Rx] Past Medical History HEENT History: Reports: None Cardiovascular History: Reports: High Cholesterol, Hypertension Respiratory History: Reports: None Gastrointestinal History: Reports: GERD, Pancreatitis, Other (See Below) Genitourinary History: Reports: None 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: Musculoskeletal History: Reports: Back Pain, Chronic, Fracture, Osteoarthritis, Osteoporosis, Other (See Below) Other Musculoskeletal History: hx ashia ankle fx's Psychiatric History: Reports: Anxiety Endocrine/Metabolic History: Reports: None Hematologic History: Reports: None Immunologic History: Reports: None Oncologic (Cancer) History: Reports: None Dermatologic History: Reports: None - Infectious Disease History Infectious Disease History: Reports: Chicken Pox - Past Surgical History Head Surgeries/Procedures: Reports: None HEENT Surgical History: Reports: Tonsillectomy GI Surgical History: Reports: Colonoscopy, EGD, Other (See Below) Other GI Surgeries/Procedures: tummy tuck. pancreatic drain placement Female Surgical History: Reports: Breast Reduction, Hysterectomy, Other (See Below) Other Female Surgeries/Procedures: ashia breast reduction Neurological Surgical History: Reports: C-Spine, Lumbar Spine, Scoliosis Other Neurological Surgeries/Procedures: hx neck and back surgery Musculoskeletal Surgical History: Reports: Carpal Tunnel Social & Family History - Family History Family Medical History: No Pertinent Family History - Caffeine Use Caffeine Use: Reports: Coffee, Energy Drinks Review of Systems - Review of Systems Review Of Systems: Comprehensive ROS is negative, except as noted in HPI. ED EXAM, GENERAL - Physical Exam Exam: See Below (see dictation) Departure - Discharge Information Referrals: PCP,None [Primary Care Provider] -
[2021-02-24] MEDS ORDERED: Orphenadrine 60 MG/2 ML Inj IM ONE (11:31)
[2021-02-24] MEDS ORDERED: Ketorolac 60 MG/2 ML SDV IM ONE (11:31)
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
--- NOTE | 2021-02-24 13:19 | CR ---
INDICATION: Pain after injury. COMPARISON: 11/11/2017. FINDINGS: The left shoulder was examined with AP internal and external rotation and outlet views for a total of three views. There is new prominent superior subluxation of the humeral head from degeneration or disruption of the rotator cuff. On the outlet view, there is cortical disruption of the dorsal aspect of the surgical neck of the humerus, with mild dorsal angulation of the fracture fragment, findings of an avulsion fracture of the inferior greater tuberosity. No additional fracture is seen elsewhere. There is anatomic alignment of the humeral head and glenoid. The visualized chest is clear. Bilateral Intrapedicular screws are seen from T3 inferiorly along with vertical connecting rods from thoracic fusion. Metallic plates are seen from anterior cervical fusion at C6-7 and extending superiorly from C5, with markers from interbody spacers. IMPRESSION: Acute, mildly angulated avulsion fracture of the inferior greater tuberosity, seen only on the outlet view. Findings of new degeneration or disruption of the rotator cuff. Dictated by Fidel Scales MD @ 02/24/2021 1:18:[address] Fidel Scales @ Feb 24 2021 1:18PM
--- NOTE | 2021-02-24 13:31 | CR ---
HISTORY: Pain after injury. COMPARISON: Left shoulder, 3 views 02/24/2021. TECHNIQUE: Left clavicle, 2 views. FINDINGS: Fusion changes in the thoracic spine, and ACDF changes in the cervical spine. An avulsion fracture of the inferior greater tuberosity was suspected on the recent shoulder series. This is not clearly seen on the images provided. There is no displaced clavicular fracture. The left AC and CC intervals are normal. There is no pneumothorax or displaced rib fracture. IMPRESSION: There is no clavicular fracture identified. Dictated by Yovany George MD @ 02/24/2021 1:29:[address] Yovany George @ Feb 24 2021 1:29PM
[2021-02-24 14:14] VITALS: BP 148/99; PULSE 89
== END 2021-02-24 14:07 | disposition home or self-care (01) ==
LOC: MW.ED 11:03
DX: V49.40XA Driver injured in collision with unspecified motor vehicles in traffic accident, initial encounter (principal); Y92.410 Unspecified street and highway as the place of occurrence of the external cause
CPT/HCPCS: 73000; 73030; 96372; 99283; J1885; J2360

== ENCOUNTER 2021-04-23 22:21 | Emergency (ER) | payer BC, OTHER ==
[2021-04-23 23:58] VITALS: PULSE 84
[2021-04-24] MEDS ORDERED: Ondansetron 4 MG Tab.DIS PO ONE (00:04)
[2021-04-24] MEDS ORDERED: fentaNYL 50 MCG/ML SDV IM ONE (00:06)
[2021-04-24] MEDS ORDERED: Sodium Chloride 0.9% 1,000 ML IV ONE (00:49)
--- NOTE | 2021-04-24 01:20 | EDM.PDOC ---
ED HPI GENERAL MEDICAL PROBLEM - General Chief Complaint: Gastrointestinal Problem Stated Complaint: VOMITING UP PAIN MEDICATION Time Seen by Provider: 04/24/21 00:07 - History of Present Illness INITIAL COMMENTS - FREE TEXT/NARRATIVE: HISTORY AND PHYSICAL: History of present illness: This is a 56-year-old female who just had right shoulder surgery on April 23 who presents ER today secondary to to her right shoulder and inability to keep down her pain medicine secondary to vomiting from the oxycodone. Patient reports that she has never been able to tolerate oxycodone and she had notified them that prior to being discharged however they prescribed for her anyway. Patient reports that she is normally able to tolerate hydrocodone. Patient reports that she also given cyclobenzaprine and was not given anything for n ausea. Patient has any recent fevers, shakes, chills, diarrhea, dysuria, frequency, urgency, chest pain, shortness of breath. Review of systems: As per history of present illness and below otherwise all systems reviewed and negative. Past medical history: As per history of present illness and as reviewed below otherwise noncontributory. Surgical history: As per history of present illness and as reviewed below otherwise noncontributory. Social history: No reported history of drug abuse. Family history: As per history of present illness and as reviewed below otherwise noncontributory. Physical exam: This patient was seen and evaluated during the 2019 SARS-CoV-2 novel coronavirus pandemic period. Community viral transmission is ongoing at time of this encounter and the emergency department is operating under pandemic response procedures. Constitutional: Patient is oriented to person, place, and time. Appears well- developed and well-nourished. No distress. HEENT: Moist mucous membranes Head: Normocephalic and atraumatic Eyes: Right eye exhibits no discharge. Left eye exhibits no discharge. No scleral icterus Neck: Normal range of motion. No tracheal deviation present. Cardiovascular: Normal rate and regular rhythm. Pulmonary: Effort normal, no respiratory distress. Abdominal: No distention Musculoskeletal: Normal range of motion Neurologic: Alert and oriented to person, place and time. Skin: Robinhood, warm and dry. Psychiatric: Normal mood and affect. Behavior is normal. Judgment and thought content normal. Nursing note and vital signs have been reviewed Diagnostics: [] Therapeutics: Insty med prescriptions written for hydrocodone and Zofran Assessment and plan: 56-year-old female who presents ER today secondary to nausea and vomiting pr esumed secondary to taking her oxycodone. Patient reports that in the past she has never been able to take oxycodone without vomiting. She reports that she was given that for pain postsurgical without any antiemetics. Patient presents ER today requesting assistance with feeling dehydrated and assistance with pain medicine and nausea. Patient was given an injection of IM fentanyl here in the ED as well as ODT Zofran. Patient was able to tolerate some p.o. liquids however she feels that she would benefit better from IV fluids. Patient had an IV placed and was given 1 L of NSS and was discharged home with a prescription for hydrocodone and Zofran. Reassessment at the time of disposition demonstrates that the patient is in no acute distress. The patient has remained stable throughout the entire ED visit and is without objective evidence for acute process requiring urgent intervention or hospitalization. The patient is stable for discharge, counseling is provided as documented above, discussed symptomatic treatment and specific conditions for return. I have spoken with the patient/caregiver and discussed todays findings, in addition to providing specific details for the plan of care. Questions are answered and there is agreement with the plan. Definitive disposition and diagnosis as appropriate pending reevaluation and review of above. Right Shoulder Pain Score (Numeric/FACES): 7 - Related Data Allergies Allergy/AdvReac Type Severity Reaction Status Date / Time No Known Allergies Allergy Verified 04/23/21 23:45 Home Meds: Home Meds Cyclobenzaprine [Flexeril] 10 mg PO TID PRN #9 tab 02/24/21 [Rx] Diclofenac Sodium [Voltaren] 75 mg PO BIDMEALS PRN #15 tab.cr 02/24/21 [Rx] Gabapentin [Neurontin] 300 mg PO TID 02/24/21 [History] Past Medical History HEENT History: Reports: None Cardiovascular History: Reports: High Cholesterol, Hypertension Respiratory History: Reports: None Gastrointestinal History: Reports: GERD, Pancreatitis, Other (See Below) Genitourinary History: Reports: None [employer] History: Reports: Musculoskeletal History: Reports: Back Pain, Chronic, Fracture, Osteoarthritis, Osteoporosis, Other (See Below) Other Musculoskeletal History: hx ashia ankle fx's Psychiatric History: Reports: Anxiety Endocrine/Metabolic History: Reports: None Hematologic History: Reports: None Immunologic History: Reports: None Oncologic (Cancer) History: Reports: None Dermatologic History: Reports: None - Infectious Disease History Infectious Disease History: Reports: Chicken Pox - Past Surgical History Head Surgeries/Procedures: Reports: None HEENT Surgical History: Reports: Tonsillectomy GI Surgical History: Reports: Colonoscopy, EGD, Other (See Below) Other GI Surgeries/Procedures: tummy tuck. pancreatic drain placement Female Surgical History: Reports: Breast Reduction, Hysterectomy, Other (See Below) Other Female Surgeries/Procedures: ashia breast reduction Neurological Surgical History: Reports: C-Spine, Lumbar Spine, Scoliosis Other Neurological Surgeries/Procedures: hx neck and back surgery Musculoskeletal Surgical History: Reports: Carpal Tunnel, Shoulder Surgery Social & Family History - Family History Family Medical History: No Pertinent Family History - Tobacco Use Tobacco Use Status *Q: Never Tobacco User Second Hand Smoke Exposure: No - Caffeine Use Caffeine Use: Reports: None - Recreational Drug Use Recreational Drug Use: No ED ROS GENERAL - Review of Systems Review Of Systems: See Below ED EXAM, GENERAL - Physical Exam Exam: See Below Course - Vital Signs Last Recorded V/S: Last Vital Signs Temp 98.3 F 04/23/21 23:40 Pulse 84 04/23/21 23:40 Resp 14 04/23/21 23:40 BP 134/85 04/23/21 23:40 Pulse Ox 94 L 04/23/21 23:40 - Orders/Labs/Meds Orders: Active Orders 24 hr Category Date Time Status Sodium Chloride 0.9% [Normal Saline] 1,000 ml Med 04/24/21 00:49 Active IV .Bolus Medication Orders Sodium Chloride (Normal Saline) 1,000 mls @ 999 mls/hr IV .Bolus ONE Stop: 04/24/21 01:49 Meds: Medications Generic Name Dose Route Start Last Admin Trade Name Freq PRN Reason Stop Dose Admin Sodium Chloride 1,000 mls @ 999 mls/hr 04/24/21 00:49 Normal Saline IV 04/24/21 01:49 .Bolus ONE Discontinued Medications Generic Name Dose Route Start Last Admin Trade Name Freq PRN Reason Stop Dose Admin Fentanyl 50 mcg 04/24/21 00:06 04/24/21 00:23 Fentanyl 50 Mcg/Ml Sdv IM 04/24/21 00:07 50 mcg ONETIME ONE Administration Ondansetron HCl 4 mg 04/24/21 00:04 04/24/21 00:19 Ondansetron 4 Mg Tab.Dis PO 04/24/21 00:05 4 mg ONETIME ONE Administration Departure - Departure Time of Disposition: 01:19 Disposition: Home, Self-Care 01 Condition: Good Clinical Impression: Postoperative pain, Vomiting, Dehydration - Discharge Information Instructions: Dehydration, Adult, [id number], Nausea and Vomiting, Adult, Pain Relief Before and After Surgery Referrals: PCP,None [Primary Care Provider] - Additional Instructions: Your seen and evaluated the ER today secondary to episodes of nausea and vomiting and postoperative pain. It appears that you are not able tolerate your oxycodone so I have written you a prescription for her hydrocodone instead. You were also given a prescription for Zofran to help you with your nausea. Please call your doctor in 1 to 2 days for reevaluation if you have any further symptoms. The following information is given to patients seen in the emergency department who are being discharged to home. This information is to outline your options for follow-up care. We provide all patients seen in our emergency department with a follow-up referral. The need for follow-up, as well as the timing and circumstances, are variable depending upon the specifics of your emergency department visit. If you don't have a primary care physician on staff, we will provide you with a referral. We always advise you to contact your personal physician following an emergency department visit to inform them of the circumstance of the visit and for follow-up with them and/or the need for any referrals to a consulting specialist. The emergency department will also refer you to a specialist when appropriate. This referral assures that you have the opportunity for follow-up care with a specialist. All of these measure are taken in an effort to provide you with optimal care, which includes your follow-up. Under all circumstances we always encourage you to contact your private physician who remains a resource for coordinating your care. When calling for follow-up care, please make the office aware that this follow-up is from your recent emergency room visit. If for any reason you are refused follow-up, please contact the [facility] Emergency Department at and asked to speak to the emergency department charge nurse. [facility] - Primary [facility] [address] [place] [id number] [facility] [address] [place] [id number] Sepsis Event Note (ED) - Focused Exam Vital Signs: Vital Signs Temp Pulse Resp BP Pulse Ox 04/23/21 23:40 98.3 F 84 14 134/85 94 L - My Orders Last 24 Hours: My Active Orders 04/24/21 00:49 Sodium Chloride 0.9% [Normal Saline] 1,000 ml IV .Bolus - Assessment/Plan Last 24 Hours: My Active Orders 04/24/21 00:49 Sodium Chloride 0.9% [Normal Saline] 1,000 ml IV .Bolus
[2021-04-24 01:46] VITALS: BP 125/73
== END 2021-04-24 01:35 | disposition home or self-care (01) ==
LOC: MW.ED 22:21
DX: G89.18 Other acute postprocedural pain (principal); M25.511 Pain in right shoulder; E86.0 Dehydration; R11.2 Nausea with vomiting, unspecified; I10 Essential (primary) hypertension
CPT/HCPCS: 96372; 99283; A9270; J3010; J7030